=== PATIENT | female | born 1995 | race Caucasian/White ===

== ENCOUNTER → 2017-09-19 | Outpatient (CLI) | payer BC, OTHER, SELFPAY | PROVIDERS: Family Provider Family Medicine; Visit Provider Orthopaedic Surgery | DX: S62.339D Displaced fracture of neck of unspecified metacarpal bone, subsequent encounter for fracture with routine healing (principal) | CPT/HCPCS: 73130 ==

== ENCOUNTER 2017-12-18 22:16 | Emergency (ER) | payer BC, OTHER, SELFPAY ==
[2017-12-18 22:21] VITALS: BP 93/61; PULSE 90; RESP 14; TEMP 37.1; O2SAT 100; BMI 22.8
--- NOTE | 2017-12-18 22:33 | XR_ITS ---
XR hand RT min 3V HISTORY: Laceration, pain ITS.REASON: possible foreign body ORDERING PHYSICIAN: Mauricio Lemus MD PATIENT AGE: 22 years COMPARISON: None FINDINGS: No fracture or dislocation. No lytic or blastic change. There is normal mineralization.. The joint spaces are well-preserved. No significant degenerative/arthritic changes. No erosive changes evident.. No radio opaque foreign body IMPRESSION: Negative, no acute finding
--- NOTE | 2017-12-18 23:11 | HMH.EDWNDL ---
ED Disposition Clinical Impression: Laceration Disposition: Home, Self-Care Condition on Discharge: Good Instructions: DI for Laceration Repair Additional Instructions: suture out 10 days Referrals: Amrit Esparza [Primary Care Provider] - - Critical Care Critical Care Time: No Attestation: On 12/18/17, the high probability of a clinically significant, sudden or life threatening deterioration of the following system(s) required my full and direct attention, intervention and personal management. The time I documented below is in addition to time spent performing reported procedures but includes the following listed in this critical care notation. Medical Decision Making - Medical Records Medical records reviewed: Yes: I reviewed the patient's medical records. - Evan Inquiry Pt receiving controlled substance: No Vital Signs: 12/18/17 22:21 Temperature 98.7 F Temperature Source Oral Pulse Rate [Left Radial] 90 Respiratory Rate 14 Blood Pressure [Left Arm] 93/61 Blood Pressure Mean [Left Arm] 71 Blood Pressure Source [Left Arm] Automatic Cuff Blood Pressure Position [Left Arm] Sitting 02 Sat by Pulse Oximetry 100 Oxygen Delivery Method Room Air - Lab Data Lab results reviewed: Yes: I reviewed the patient's lab results. Orders (Tests/Meds): ORDERS Category Date Time Status Hand XR right minimum 3 views [XR hand RT min 3V] Stat Exams 12/18/17 22:33 Ordered - Radiology Data #1 Image(s): Hand Image Reviewed: Yes I reviewed the patient's radiology image Preliminary Findings: No Fracture Seen Wound/Laceration HPI - General Chief Complaint: Wound/Laceration Stated Complaint: ao [id number] Lac to r hand Time Seen by Provider: 12/18/17 23:11 Mode of Arrival: Ambulatory Source of Information: Patient, Relative, Medical Record Limitations: No Limitations Description of Symptoms (Recalled from ER Triage Doc. 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 - History of Present Illness HPI narrative: lac rt hand at wrist Onset (ago): hour(s) Extremity Location: Right: hand Place: home Patient tetanus UTD: Yes Context: accidental Associated symptoms: suspect foreign body present - Related Data Home Medications Medication Instructions Recorded Confirmed cyanocobalamin (vit B-12) ER 2,000 2,000 mcg PO QDAY 09/25/17 12/18/17 mcg tablet,extended release folic acid 1 mg tablet 1 mg PO QDAY 09/25/17 12/18/17 levothyroxine 75 mcg capsule 75 mcg PO DAILY 09/25/17 12/18/17 Allergies Allergy/AdvReac Type Severity Reaction Status Date / Time amoxicillin [AMOXICILLIN] Allergy Unknown Verified 12/18/17 22:33 [facility] History I have reviewed the patient's past medical history: Yes Medical History: Denies:: Cancer, Diabetes Mellitus Type 1, Diabetes Mellitus Type 2, MRSA Amputation: No Fractures: No - Social History Smoking Status: Current every day smoker Alcohol Intake: current Alcohol Intake Frequency:: a few times a month Substance Use Type: crack/cocaine Last Used Substance: unknown - Psychiatric History Expresses thoughts of harming self/others: None Suicide Plan Description: No Plan ROS Obtained: Yes All systems reviewed & no additional complaints - Constitutional Constitutional: Denies fever(s) - Eyes Eyes: Denies change in vision - ENT Ears, Nose, Mouth, and Throat: Denies sore throat - Cardiovascular Cardiovascular: Denies chest pain at rest - Respiratory Respiratory: No chest congestion - Gastrointestinal Gastrointestingal: Denies: abdominal pain - Musculoskeletal Musculoskeletal: Denies joint pain - Integumentary/Breasts Skin/Breast: Reports as per HPI (1 cm rt hand lac / neurovascular ok / tendon intact ), Denies rash - Neurologic Neurologic: Denies seizure-like activity Physical Exam - General General appearance: alert, in no apparent distress - Head Head exam: normocephalic
--- NOTE | 2017-12-18 23:14 | ED_ITS ---
ED Disposition Clinical Impression: Laceration Disposition: Home, Self-Care Condition on Discharge: Good Instructions: DI for Laceration Repair Additional Instructions: suture out 10 days Referrals: Amrit Esparza [Primary Care Provider] - - Critical Care Critical Care Time: No Attestation: On 12/18/17, the high probability of a clinically significant, sudden or life threatening deterioration of the following system(s) required my full and direct attention, intervention and personal management. The time I documented below is in addition to time spent performing reported procedures but includes the following listed in this critical care notation. Medical Decision Making - Medical Records Medical records reviewed: Yes: I reviewed the patient's medical records. - Evan Inquiry Pt receiving controlled substance: No Vital Signs: 12/18/17 22:21 Temperature 98.7 F Temperature Source Oral Pulse Rate [Left Radial] 90 Respiratory Rate 14 Blood Pressure [Left Arm] 93/61 Blood Pressure Mean [Left Arm] 71 Blood Pressure Source [Left Arm] Automatic Cuff Blood Pressure Position [Left Arm] Sitting 02 Sat by Pulse Oximetry 100 Oxygen Delivery Method Room Air - Lab Data Lab results reviewed: Yes: I reviewed the patient's lab results. Orders (Tests/Meds): ORDERS Category Date Time Status Hand XR right minimum 3 views [XR hand RT min 3V] Stat Exams 12/18/17 22:33 Ordered - Radiology Data #1 Image(s): Hand Image Reviewed: Yes I reviewed the patient's radiology image Preliminary Findings: No Fracture Seen Wound/Laceration HPI - General Chief Complaint: Wound/Laceration Stated Complaint: ao [id number] Lac to r hand Time Seen by Provider: 12/18/17 23:11 Mode of Arrival: Ambulatory Source of Information: Patient, Relative, Medical Record Limitations: No Limitations Description of Symptoms (Recalled from ER Triage Doc. 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 Illness HPI narrative: lac rt hand at wrist Onset (ago): hour(s) Extremity Location: Right: hand Place: home Patient tetanus UTD: Yes Context: accidental Associated symptoms: suspect foreign body present - Related Data Home Medications Medication Instructions Recorded Confirmed cyanocobalamin (vit B-12) ER 2,000 2,000 mcg PO QDAY 09/25/17 12/18/17 mcg tablet,extended release folic acid 1 mg tablet 1 mg PO QDAY 09/25/17 12/18/17 levothyroxine 75 mcg capsule 75 mcg PO DAILY 09/25/17 12/18/17 Allergies Allergy/AdvReac Type Severity Reaction Status Date / Time amoxicillin [AMOXICILLIN] Allergy Unknown Verified 12/18/17 22:[address] [facility] History I have reviewed the patient's past medical history: Yes Medical History: Denies:: Cancer, Diabetes Mellitus Type 1, Diabetes Mellitus Type 2, MRSA Amputation: No Fractures: No - Social History Smoking Status: Current every day smoker Alcohol Intake: current Alcohol Intake Frequency:: a few times a month Substance Use Type: crack/cocaine Last Used Substance: unknown - Psychiatric History Expresses thoughts of harming self/others: None Suicide Plan Description: No Plan ROS Obtained: Yes All systems reviewed & no additional complaints
[2017-12-18 23:25] VITALS: BP 119/68; PULSE 78; RESP 15; TEMP 36.9; O2SAT 100
== END 2017-12-18 23:27 | disposition home or self-care (01) ==
PROVIDERS: Emergency Provider Emergency Medicine; Family Provider Family Medicine; PCP Family Medicine
DX: S61.411A Laceration without foreign body of right hand, initial encounter (principal); W45.8XXA Other foreign body or object entering through skin, initial encounter; F17.210 Nicotine dependence, cigarettes, uncomplicated; Z88.1 Allergy status to other antibiotic agents
CPT/HCPCS: 12001; 73130; 99282

== ENCOUNTER → 2020-05-26 11:13 | Outpatient (CLI) | payer OTHER, SELFPAY ==
[2020-05-26 11:38] LABS: Eosinophils # 0.1 K/mm3 (0.0-0.4); Eosinophils % 1.2 % (0.1-12.0); Hematocrit 33.7 % (37.0-47.0); Hemoglobin 11.2 g/dL (12.2-16.2); Lymphocytes # 1.8 K/mm3 (0.7-4.5); Lymphocytes % 23.3 % (10-50); Mean Corpuscular HGB Conc 33.3 g/dL (31.8-35.4); Mean Corpuscular Hemoglobin 29.7 pg (27.0-31.2); Mean Corpuscular Volume 89.1 fl (81-99); Mean Platelet Volume 8.5 fl (7.4-10.4); Monocytes # 0.4 K/mm3 (0.1-1.0); Neutrophils # 5.5 K/mm3 (1.8-7.8); Neutrophils % 70.4 % (37.0-80.0); Platelet Count 226 K/mm3 (142-424); Red Blood Count 3.78 M/mm3 (4.20-5.40); Red Cell Distribution Width 15.7 % (11.5-17.5); White Blood Count 7.8 K/mm3 (4.8-10.8)
[2020-05-26 12:27] LABS: Alanine Aminotransferase 10 U/L (12-78); Albumin Level 3.6 g/dl (3.5-5.0); Albumin/Globulin Ratio 1.1 (1.1-1.8); Alkaline Phosphatase 63 U/L (38-126); Anion Gap 12.6 mEq/L (5-15); Aspartate Amino Transferase 21 U/L (14-36); Bilirubin,Total 0.5 mg/dl (0.2-1.3); Blood Urea Nitrogen 11 mg/dl (7-17); Calcium 8.9 mg/dl (8.4-10.2); Carbon Dioxide 26 mmol/L (22.0-30.0); Chloride 100 mmol/L (98-107); Estimated Glomerular Filt Rate 101 ml/min (>60); GFR (African American) 122 ML/MIN (>60); Globulin 3.3 g/dL (1.3-3.2); Glucose 81 mg/dl (74-100); Potassium 4.6 mmoL/L (3.5-5.1); Sodium 134 mmol/L (136-145); Total Protein,Serum 6.9 g/dl (6.3-8.2)
[2020-05-26 12:46] LABS: Free Thyroxine Index 2.3 ug/dL (5.93-13.13); T4 (Thyroxine) 10.6 ug/dl (5.53-11.0); Triiodothryronine (T3) Uptake 22 % (23.5-40.5)
[2020-05-26 13:32] LABS: Vitamin B12 214 pg/mL
[2020-05-26 13:53] LABS: Folate > 20.00 ng/mL
[2020-05-27 10:27] LABS: HIV Screen 4th Generation wRfx Non Reactive (Non Reactive); Hepatitis B Surface Antigen Negative (Negative); Hepatitis C Antibody <0.1 s/co ratio (0.0-0.9); Rubella Antibodies, IgG 2.62 index (Immune >0.99)
[2020-05-27 15:31] LABS: Rapid Plasma Reagin Ab Titer Non Reactive (NonRea<1:1)
[2020-05-27 18:39] LABS: Phencyclidine Screen,Urine Negative ng/ml (<25)
[2020-05-27 18:49] LABS: Amphetamine/Metha Screen,Urine Negative ng/ml (<1000)
[2020-05-27 18:50] LABS: Cannabinoid Screen,Urine Negative ng/ml (<50)
[2020-05-27 18:51] LABS: Barbiturates Screen,Urine Negative ng/ml (<200); Benzodiazepines Screen,Urine Negative ng/ml (<200)
[2020-05-27 18:52] LABS: Methadone Screen,Urine Negative ng/ml (<300); Opiate Screen,Urine Negative ng/ml (<300)
[2020-05-27 18:53] LABS: Cocaine Screen,Urine Negative ng/ml (<300)
== END ==
PROVIDERS: Visit Provider Obstetrics & Gynecology
DX: Z34.90 Encounter for supervision of normal pregnancy, unspecified, unspecified trimester (principal); D52.9 Folate deficiency anemia, unspecified; E05.00 Thyrotoxicosis with diffuse goiter without thyrotoxic crisis or storm
CPT/HCPCS: 36415; 80053; 80305; 82607; 82746; 84436; 84443; 84479; 85025; 86592; 86703; 86762; 86850; 86870; 87340; 87380; G0432

== ENCOUNTER → 2020-06-16 13:06 | Outpatient (CLI) | payer OTHER, SELFPAY ==
--- NOTE | 2020-06-16 13:06 | US_ITS ---
PROCEDURE: US OB /MATERNAL DETAIL CLINICAL INDICATION: US OB Complete COMPARISON: No exams were available for comparison FINDINGS: There is a single live fetus which is in cephalic presentation. heart and body motion noted. Cervix is closed and measures 4.6 cm transabdominal. Placenta is anterior in implantation and grade 1. Complete survey performed and was unremarkable on the submitted images as in PACS. No discrete anomalies identified on survey imaging by technologist. Active fetus. Three-vessel cord with satisfactory umbilical cord insertion. 4- chamber heart noted. Survey of brain & ventricles Unremarkable. Face and neck survey unremarkable. Diaphragm and chest views unremarkable. Abdomen: Both kidneys noted and unremarkable. Stomach noted and satisfactory. Spine: Survey of the spine satisfactory with no anomalies identified nor imaged. Both arms and legs noted. Amniotic Fluid: Adequate. Maternal adnexa: No significant findings. Measurements: Average ultrasound age 20weeks 4days. Gestational Age 20weeks 1day Estimated due date by ultrasound age 0110/30/2020. Estimated weight 359g BPD = 20weeks 6days OFD = 20weeks 6days HC = 20weeks 1day AC = 20weeks 3days FL = 20weeks 6days Growth Percentile= 67Percent% Heart Rate = 140bpm Cerebellum = 21weeks 2days Humerus = 20weeks 5days HC/AC is 1.15 CI is 0.79 FL/BPD is 0.7 FL/AC is 0.22 IMPRESSION: Live IUP at 20 weeks 4 days as described above. No obvious anomalies. Please see above for detailed description Dictated by: Rc Garcia MD 06/17/2020 12:33 Rc Garcia MD in [place] 06/17/2020 12:33
== END ==
PROVIDERS: PCP Family Medicine; Visit Provider Obstetrics & Gynecology
DX: Z36.0 Encounter for antenatal screening for chromosomal anomalies (principal)
CPT/HCPCS: 76811

== ENCOUNTER → 2020-07-26 16:28 | Outpatient (CLI) | payer OTHER, SELFPAY | PROVIDERS: Visit Provider Obstetrics & Gynecology | DX: N39.0 Urinary tract infection, site not specified (principal) | CPT/HCPCS: 87086; 87088; 87186 ==

== ENCOUNTER → 2020-07-29 08:09 | Outpatient (CLI) | payer OTHER, SELFPAY ==
[2020-07-29 09:40] LABS: Glucose,Fasting 88 mg/dl (74-100)
[2020-07-29 10:18] LABS: Glucose 1 Hour 105 mg/dL (74-100)
== END ==
PROVIDERS: Visit Provider Obstetrics & Gynecology
DX: Z34.90 Encounter for supervision of normal pregnancy, unspecified, unspecified trimester (principal)
CPT/HCPCS: 36415; 82951

== ENCOUNTER 2020-07-31 03:26 | Outpatient (CLI) | payer OTHER, SELFPAY ==
[2020-07-31 03:44] VITALS: BMI 27.1
[2020-07-31 04:15] LABS: Fetal Membrane Rupture (Rapid) Negative (Negative); Microscopic, Urine URINE MICROSCOPIC (MICROSCOPIC)
[2020-07-31 04:18] LABS: Appearance,Urine SL CLOUDY (Clear); Bilirubin,Urine Negative (Negative); Blood, Urine Negative (Negative); Color,Urine YELLOW (Yellow); Glucose,Urine (UA) Negative (Negative); Ketones,Urine Negative (Negative); Leukocyte Esterase,Urine TRACE (Negative); Nitrate,Urine Negative (Negative); PH,Urine 6.5 (5.0-8.5); Protein,Urine Negative (Negative); Specific Gravity, Urine 1.025 (1.005-1.030); Urobilinogen,Urine 0.2 EU/dl (0.2)
[2020-07-31 04:22] LABS: Amorphous Sediment,Urine 1+ /lpf; Squamous Epithelial Cell,Urine 20-50 #/hpf (0-5); WBC,Urine 20-50 #/hpf (0-3)
[2020-07-31 04:29] LABS: Barbiturates Screen,Urine Negative ng/ml (<200); Benzodiazepines Screen,Urine Negative ng/ml (<200)
[2020-07-31 04:30] LABS: Amphetamine/Metha Screen,Urine Negative ng/ml (<1000); Methadone Screen,Urine Negative ng/ml (<300)
[2020-07-31 04:31] LABS: Cannabinoid Screen,Urine Negative ng/ml (<50)
[2020-07-31 04:32] LABS: Cocaine Screen,Urine Negative ng/ml (<300); Opiate Screen,Urine Negative ng/ml (<300)
[2020-07-31 04:33] LABS: Phencyclidine Screen,Urine Negative ng/ml (<25)
[2020-07-31 04:44] LABS: Basophils % 0.1 % (0.1-2.0); Eosinophils # 0.1 K/mm3 (0.0-0.4); Eosinophils % 0.7 % (0.1-12.0); Hematocrit 33.2 % (37.0-47.0); Hemoglobin 10.4 g/dL (12.2-16.2); Lymphocytes # 1.3 K/mm3 (0.7-4.5); Lymphocytes % 13.9 % (10-50); Mean Corpuscular HGB Conc 31.2 g/dL (31.8-35.4); Mean Corpuscular Hemoglobin 27.8 pg (27.0-31.2); Mean Corpuscular Volume 89.1 fl (81-99); Mean Platelet Volume 8.3 fl (7.4-10.4); Monocytes # 0.6 K/mm3 (0.1-1.0); Monocytes % 6.7 % (1.7-9.3); Neutrophils # 7.5 K/mm3 (1.8-7.8); Neutrophils % 78.5 % (37.0-80.0); Platelet Count 225 K/mm3 (142-424); Red Blood Count 3.73 M/mm3 (4.20-5.40); Red Cell Distribution Width 14.8 % (11.5-17.5); White Blood Count 9.5 K/mm3 (4.8-10.8)
[2020-07-31 04:53] LABS: Anion Gap 11.7 mEq/L (5-15); Blood Urea Nitrogen 15 mg/dl (7-17); Calcium 8.6 mg/dl (8.4-10.2); Carbon Dioxide 21 mmol/L (22.0-30.0); Chloride 107 mmol/L (98-107); Creatinine Clearance Estimated 66 mL/min (50-200); Estimated Glomerular Filt Rate 39 ml/min (>60); GFR (African American) 47 ML/MIN (>60); Glucose 92 mg/dl (74-100); Potassium 3.7 mmoL/L (3.5-5.1); Sodium 136 mmol/L (136-145)
[2020-07-31 05:10] VITALS: BP 117/78; PULSE 95; RESP 24; TEMP 37.1; O2SAT 99; BMI 27.1
== END 2020-07-31 07:00 | disposition home or self-care (01) ==
LOC: OBOUT 03:28 → OB 03:29
PROVIDERS: PCP Family Medicine; Referring Provider Obstetrics & Gynecology; Visit Provider Nurse Practitioner Obstetrics & Gynecology
DX: O26.892 Other specified pregnancy related conditions, second trimester (principal); Z3A.26 26 weeks gestation of pregnancy; R10.9 Unspecified abdominal pain; M54.5 Low back pain
CPT/HCPCS: 59025; 80048; 80305; 81001; 84112; 85025; 87086; 96365; 96367; G0463; J0595

== ENCOUNTER → 2020-09-12 14:17 | Outpatient (CLI) | payer OTHER, SELFPAY ==
--- NOTE | 2020-09-12 14:21 | US_ITS ---
PROCEDURE: US OB FOLLOW UP CLINICAL INDICATION: US BPP, Growth KERRY- SGA Small for gestational age COMPARISON: US US OB /MATERNAL DETAIL from 06/16/2020 FINDINGS: There is a single live fetus which is in cephalic presentation. heart body and practice breathing motion identified. Placenta is anterior and grade 1. Biophysical profile is 8 of 8. Average ultrasound age is 32 weeks 6 days. BPD 33 weeks 3 days, OFD 33 weeks 2 days, HC 33 weeks 0 days, AC 32 weeks 1 day, FL 32 weeks 4 days. Estimated weight is 1976 g which is 32 percentile. KERRY=16cm. IMPRESSION: Live IUP at 32 weeks 6 days as described above with a biophysical profile 8 of 8. Estimated weight is 1976 g which is 32 percentile. No evidence intrauterine growth restriction KERRY=16cm. Dictated by: Rc Garcia MD 09/13/2020 05:31 Rc Garcia MD in [place] 09/13/2020 05:31
== END ==
PROVIDERS: PCP Family Medicine; Visit Provider Obstetrics & Gynecology
DX: O36.5990 Maternal care for other known or suspected poor fetal growth, unspecified trimester, not applicable or unspecified (principal)
CPT/HCPCS: 76816; 76819

== ENCOUNTER 2020-10-11 11:20 | Inpatient (IN) | payer OTHER, SELFPAY ==
[2020-10-11 11:24] VITALS: BP 116/68; PULSE 82; RESP 18; TEMP 36.5; O2SAT 98; BMI 31.0
[2020-10-11 12:56] LABS: Basophils % 0.1 % (0.1-2.0); Eosinophils # 0.1 K/mm3 (0.0-0.4); Eosinophils % 0.6 % (0.1-12.0); Hemoglobin 10.3 g/dL (12.2-16.2); Lymphocytes % 20.7 % (10-50); Mean Corpuscular HGB Conc 31.2 g/dL (31.8-35.4); Mean Corpuscular Hemoglobin 25.6 pg (27.0-31.2); Mean Corpuscular Volume 82.1 fl (81-99); Monocytes # 0.5 K/mm3 (0.1-1.0); Monocytes % 5.1 % (1.7-9.3); Neutrophils # 7.2 K/mm3 (1.8-7.8); Neutrophils % 73.4 % (37.0-80.0); Platelet Count 236 K/mm3 (142-424); Red Blood Count 4.01 M/mm3 (4.20-5.40); Red Cell Distribution Width 16.6 % (11.5-17.5); White Blood Count 9.8 K/mm3 (4.8-10.8)
[2020-10-11 13:22] LABS: Microscopic, Urine URINE MICROSCOPIC (MICROSCOPIC)
--- NOTE | 2020-10-11 13:24 | HMH.OBAPHP ---
OB - H&P: HPI Antepartum - History of Present Illness Chief complaint: contractions History of present illness: 24 yo presented to routine appointment @ 36 6/ with complaints of nausea and regular contractions On NST she was yvrose every 2-3 minutes and cervix 4cm dilated Sent to L&D for admission GBS negative [facility] History I have reviewed the patient's past medical history: Yes Medical History: Denies:: Cancer, Diabetes Mellitus Type 1, Diabetes Mellitus Type 2, MRSA, Seizures *Have you ever received a pneumonia vaccine?: No *Have you received a flu vaccine this season?: No Other Medical History: Denies: Blood Transfusion Reaction Anesthesia experience/problems:: none Other Surgeries: No: Amputation: No Fractures: No - *Social History Smoking Status: Former smoker Tobacco Type: cigarettes # Packs/Day (cigarettes): 1 Alcohol Intake: current Alcohol Intake Frequency:: holidays/special occasions only Substance Use Type: crack/cocaine *Occupational Status:: unemployed *Travel in the last 8 weeks: None Family Hx:: Diabetes, Heart Attack, Hypertension, Hyperlipidemia, Kidney Disease, Cancer, Thyroid Disorder, Asthma Para: 3 Review of Systems - Review of Systems Review of systems:: pertinent systems reviewed and negative unless documented below - *Respiratory Denies cough - *Gastrointestinal Reports nausea, Denies vomiting - *Genitourinary Comments: + contractions Meds Home Medications Medication Instructions Recorded Confirmed Type cyanocobalamin (vitamin B-12) 2,000 mcg PO QDAY 09/25/17 10/11/20 History 2,000 mcg tablet,extended release folic acid 1 mg tablet 1 mg PO QDAY 09/25/17 10/11/20 History levothyroxine 75 mcg capsule 75 mcg PO DAILY 09/25/17 10/11/20 History insulin syringe-needle U-100 1 mL 1 ml .ROUTE .MEDSUPPLY #10 each 05/26/20 10/11/20 History 28 gauge x 1/2 vitamin with calcium 1 tab PO DAILY tab 05/26/20 10/11/20 History no.72-iron 27 mg-folic acid 1 mg tablet Citalopram Hydrobromide 20 mg PO DAILY 07/31/20 10/11/20 History [Citalopram HBr] Allergies Allergy/AdvReac Type Severity Reaction Status Date / Time amoxicillin [AMOXICILLIN] Allergy Unknown Verified 10/11/20 10:11 OB - H&P: Exam - Physical Exam Vital signs: Temp Pulse Resp BP Pulse Ox 97.7 F 82 18 116/68 98 10/11/20 11:24 10/11/20 11:24 10/11/20 11:24 10/11/20 11:24 10/11/20 11:24 - Constitutional no acute distress - Routine HEENT Exam Head: Present: normocephalic, atraumatic Eye: Absent: conjunctival icterus ENT: Present: mucous membranes moist - Routine Neck Exam Present: supple - Routine Respiratory Exam Present: CTA bilaterally. Absent: respiratory distress - Routine Cardiovascular Exam Present: RRR - Routine Abdominal Exam Present: soft. Absent: tenderness, distended - Routine Exam Comments: cervix 4/75/0 - Routine Extremities Exam Absent: edema - Routine Skin Exam Present: rash - Routine Neurological Exam Present: alert, oriented X3 - Routine Psychiatric Exam Present: normal affect OB - Results - Labs Labs: Short CBC 10/11/20 Range/Units 12:15 WBC 9.8 (4.8-10.8) K/mm3 Hgb 10.3 L (12.2-16.2) g/dL Hct 33.0 L (37.0-47.0) % Plt Count 236 (142-424) K/mm3 Urine 10/11/20 Range/Units 11:55 Urine Color Yellow (Yellow) Urine Appearance Clear (Clear) Urine pH 6.5 (5.0-8.5) Ur Specific [place] 1.020 (1.005-1.030) Urine Protein Negative (Negative) Urine Glucose (UA) Negative (Negative) OB - A/P Antepartum (1) 36 weeks gestation of Status: Acute (2) Active labor Status: Acute (3) Anxiety and depression Status: Acute (4) Folate deficiency anemia Status: Acute (5) Short interval between pregnancies affecting , antepartum Status: Acute - Additional Plan Additional Inf
[2020-10-11 13:28] LABS: Appearance,Urine CLEAR (Clear); Bilirubin,Urine Negative (Negative); Blood, Urine TRACE-I (Negative); Color,Urine YELLOW (Yellow); Glucose,Urine (UA) Negative (Negative); Ketones,Urine Negative (Negative); Leukocyte Esterase,Urine TRACE (Negative); Nitrate,Urine Negative (Negative); PH,Urine 6.5 (5.0-8.5); Protein,Urine Negative (Negative)
--- NOTE | 2020-10-11 13:32 | HMH.ANESCL ---
[facility] Anesthesia Checklist - Patient Identification Patient Identification: Arm Band, Verbal (Name & ) - Structural Data Admitted From: Home Planned Operative Procedure/s: labor epidural Consent for Planned Operative Procedure(s) Verified: Yes Verified Documents: History and Physical - NPO Status Verified Time NPO: 00:00 - Chart Verification Results Verified: CBC, BMP - Additional verifications Patient : Yes Anesthesia Reactions: No Hx Blood Transfusions: No Blood Transfusion Reaction: No Cephalosporin Allergy: No Previous Colonoscopy: No - Cardiovascular Assessment Heart Sounds: S1 & S2 Pulse Strength: Baseline Pulse Rhythm: Regular Peripheral Edema: No - Airway Assessment C-Spine Mobility Assessed: Yes TMJ Mobility Assessed: Yes Dentition: Good Dentition - Neurological Assessment Level of Consciousness: Awake, Alert, Appropriate Hx Seizures: No Numbness or tingling in extremities: No - Anesthesia Plan Anesthesia Risk discussed: Yes Anesthesia Plan: Verified ASA Class: II Anesthesia Type: Epidural [facility] History I have reviewed the patient's past medical history: Yes Medical History: Denies:: Cancer, Diabetes Mellitus Type 1, Diabetes Mellitus Type 2, MRSA *Have you ever received a pneumonia vaccine?: No *Have you received a flu vaccine this season?: No Anesthesia experience/problems:: none Other Surgeries: No: Amputation: No Fractures: No - *Social History Smoking Status: Former smoker Tobacco Type: cigarettes # Packs/Day (cigarettes): 1 Alcohol Intake: current Alcohol Intake Frequency:: holidays/special occasions only Substance Use Type: crack/cocaine *Occupational Status:: unemployed *Travel in the last 8 weeks: None Family Hx:: Diabetes, Heart Attack, Hypertension, Hyperlipidemia, Kidney Disease, Cancer, Thyroid Disorder, Asthma Para: 3
[2020-10-11 13:44] LABS: Coronavirus 19 IgG Antibody Negative (Negative); Coronavirus 19 IgM Antibody Negative (Negative)
[2020-10-11 14:04] LABS: Amphetamine/Metha Screen,Urine Negative ng/ml (<1000)
[2020-10-11 14:05] LABS: Barbiturates Screen,Urine Negative ng/ml (<200)
[2020-10-11 14:06] LABS: Benzodiazepines Screen,Urine Negative ng/ml (<200); Cannabinoid Screen,Urine Negative ng/ml (<50)
[2020-10-11 14:07] LABS: Cocaine Screen,Urine Negative ng/ml (<300)
[2020-10-11 14:08] LABS: Methadone Screen,Urine Negative ng/ml (<300); Opiate Screen,Urine Negative ng/ml (<300)
[2020-10-11 14:09] LABS: Phencyclidine Screen,Urine Negative ng/ml (<25)
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
[2020-10-11 16:00] VITALS: BP 110/64; PULSE 56; RESP 18; TEMP 36.4; O2SAT 100
--- NOTE | 2020-10-11 17:27 | HMH.DN ---
- Delivery Note Delivery Date:: 10/11/20 Delivery Time:: 15:17 Anesthesia Type: Epidural Was labor medically induced?: No Infant delivered prior to 39 weeks?: Yes Justification for early elective delivery:: Active Labor Infant Gender: Male at 1 minute: 8 at 5 minutes: 9 Delivery Procedure:: Spontaneous precipitous delivery of liveborn male Delivery occurred immediately after physician was called, leaving nursing staff to attend the delivery No shoulder dystocia or nuchal cord, per nursing staff Placenta delivered by MD, intact Cord segment preserved, per protocol No vulvar, vaginal or cervical lacerations Mother and stable to recovery EBL 300cc Placental Delivery Description: Spontaneous
[2020-10-11 19:06] LABS: POC Glucose,Bedside 62 (70-110)
[2020-10-11 20:00] VITALS: BP 111/57; PULSE 64; RESP 17; TEMP 36.8; O2SAT 100
[2020-10-11 21:35] LABS: POC Glucose,Bedside 59 (70-110)
[2020-10-12 00:10] LABS: POC Glucose,Bedside 65 (70-110)
[2020-10-12 03:47] LABS: POC Glucose,Bedside 77 (70-110)
[2020-10-12 04:00] VITALS: BP 112/73; PULSE 73; RESP 18; TEMP 36.7; O2SAT 100
[2020-10-12 07:11] LABS: Hematocrit 30.2 % (37.0-47.0); Hemoglobin 9.3 g/dL (12.2-16.2)
[2020-10-12 08:00] VITALS: BP 115/60; PULSE 73; RESP 16; TEMP 36.7; O2SAT 97
[2020-10-12 12:00] VITALS: BP 106/68; PULSE 80; RESP 18; TEMP 36.7; O2SAT 98
--- NOTE | 2020-10-12 14:09 | P.PN_ITS ---
Internal Medicine - PN: Subj *Date: 10/12/20 *Time: 14:09 Interval history: PPD 1 vaginal delivery Tolerating regular diet Ambulating and voiding without difficulty Lochia small Asymptomatic with [id number] anemia Exam Vital signs and Labs for Last 24 Hours: Temp Pulse Resp BP Pulse Ox 98.0 F 80 18 106/68 L 98 10/12/20 12:00 10/12/20 12:00 10/12/20 12:00 10/12/20 12:00 10/12/20 12:00 Laboratory Results - last 24 hr 10/11/20 11:55: Urine Opiates Screen Negative, Urine Methadone Screen Negative, Ur Barbituates Screen Negative, Ur Phencyclidine Scrn Negative, Ur Amphetamines Screen Negative, U Benzodiazepines Scrn Negative, Urine Cocaine Screen Negative, U Marijuana (THC) Screen Negative 10/11/20 12:15: Blood Type O Positive, Antibody Screen Positive 10/11/20 12:15: Antibody Identification Anti-Fya 10/11/20 18:57: POC Glucose 62 L 10/11/20 21:28: POC Glucose 59 L 10/12/20 00:01: POC Glucose 65 L 10/12/20 03:38: POC Glucose 77 10/12/20 06:08: Hgb 9.3 L, Hct 30.2 L I & O for Last 24 hours: Intake & Output 10/10/20 10/11/20 10/12/20 10/13/20 11:59 11:59 11:59 11:59 Weight 198 lb Narrative: CONSTITUTIONAL: no acute distress HEENT: mucous membranes moist PULMONARY: breathing unlabored without audible wheezes CV: no tachycardia or visible JVD; normal LE peripheral pulses ABD: soft, NT/ND, no guarding : fundus firm at/below umbilicus SKIN: no visible rash or lesions EXT: 1+ edema LEs NEURO: alert/oriented, no altered mental status PSYCH: appropriate mood and demeanor without visible anxiety/depression Assessment and Plan (1) 36 weeks gestation of Status: Acute Category: Medical Code(s): Z3A.36 - 36 weeks gestation of (2) Active labor Status: Acute Category: Medical Code(s): O60.10X0 - labor with prete rm delivery, unspecified trimester, not applicable or unspecified (3) Anxiety and depression Status: Acute Category: Medical Code(s): F41.9 - Anxiety disorder, unspecified; F32.9 - Major depressive disorder, single episode, unspecified (4) Folate deficiency anemia Status: Acute Category: Medical Code(s): D52.9 - Folate deficiency anemia, unspecified (5) Short interval between pregnancies affecting , antepartum Status: Acute Category: Medical Code(s): O09.899 - Supervision of other high risk pregnancies, unspecified trimester - Assessment and plan all Dx Assessment and Plan for all problems:: Routine care Anticipate discharge home tomorrow Continue PNV with FeSO4
--- NOTE | 2020-10-12 14:15 | HMH.PHAINT ---
MEDICATION RECONCILIATION COMPLETED ON PATIENT USING EXTERNAL FILL HISTORY FROM PHARMACY. -KATIE LOZA, [place]
[2020-10-12 16:00] VITALS: BP 113/69; PULSE 80; RESP 18; TEMP 36.8; O2SAT 98
[2020-10-12 19:43] VITALS: BP 108/70; PULSE 78; RESP 18; TEMP 37; O2SAT 98
[2020-10-13 04:58] VITALS: BP 118/67; PULSE 85; RESP 18; TEMP 36.9
[2020-10-13 08:00] VITALS: BP 108/57; PULSE 70; RESP 18; TEMP 37.2; O2SAT 98
[2020-10-13 12:00] VITALS: BP 127/75; PULSE 72; RESP 18; TEMP 36.7; O2SAT 96
--- NOTE | 2020-10-13 14:18 | HMH.DCSUM ---
General - General Admission date:: 10/11/20 Discharge date: 10/13/20 Hospital Course Hospital Course: Admitted in active labor at 36 6/7 Uncomplicated, precipitous vaginal delivery course uneventful Discharged home on PPD #2 in stable condition Ambulating and voiding without difficulty Tolerating regular diet Rhogam Administration: Not Indicated Objective Vital signs: Temp Pulse Resp BP Pulse Ox 98.1 F 72 18 127/75 96 10/13/20 12:00 10/13/20 12:00 10/13/20 12:00 10/13/20 12:00 10/13/20 12:00 Narrative: CONSTITUTIONAL: no acute distress HEENT: mucous membranes moist PULMONARY: breathing unlabored without audible wheezes CV: no tachycardia or visible JVD; normal LE peripheral pulses ABD: soft, NT/ND, no guarding : fundus firm at/below umbilicus SKIN: no visible rash or lesions EXT: 1+ edema LEs NEURO: alert/oriented, no altered mental status PSYCH: appropriate mood and demeanor without visible anxiety/depression DS: Diagnosis - Discharge Diagnosis (1) 36 weeks gestation of Status: Acute (2) Active labor Status: Acute (3) Anxiety and depression Status: Acute (4) Folate deficiency anemia Status: Acute (5) Short interval between pregnancies affecting , antepartum Status: Acute Discharge Plan - Patient Discharge Instructions ACTIVITY: Continue current activity DIET: regular diet Additional Instructions: NOTHING IN VAGINA FOR 6 WEEKS. CONTINUE TO TAKE VITAMINS AND DRINK PLENTY OF WATER. KEEP FOLLOW UP APPOINTMENT. Patient Instructions: Depression, Hemorrhage, DI for Labor and Delivery, Vaginal , DI for Pre-eclampsia, [facility] Post Discharge Instructions, Preventing the Spread of Coronavirus Discharge Instructions - Follow up Plan Follow up with: Suni Yi MD [Staff Physician] - Disposition: Home, Self-[facility] Medications: Home Medications Medication Instructions Recorded Confirmed Type cyanocobalamin (vitamin B-12) 2,000 mcg PO DAILY 09/25/17 10/12/20 History 2,000 mcg tablet,extended release folic acid 1 mg tablet 1 mg PO DAILY 09/25/17 10/12/20 History vitamin with calcium 1 tab PO DAILY tab 05/26/20 10/11/20 History no.72-iron 27 mg-folic acid 1 mg tablet Citalopram Hydrobromide 20 mg PO DAILY 07/31/20 10/11/20 History [Citalopram HBr] Levothyroxine Sodium 88 mcg PO DAILY 10/12/20 10/12/20 History [Levothyroxine 88mcg (0.088mg) Tab] Prescriptions/Medication Reconciliation: New Ibuprofen [Motrin 400mg tablet] 800 mg PO Q6HP PRN tablet PRN Reason: Mild To Moderate Pain Acetaminophen [Acetaminophen 325mg tab] 650 mg PO Q4HP PRN tablet PRN Reason: Mild Pain Continued folic acid 1 mg tablet 1 mg PO DAILY cyanocobalamin (vitamin B-12) 2,000 mcg tablet,extended release 2,000 mcg PO DAILY vitamin with calcium no.72-iron 27 mg-folic acid 1 mg tablet 1 tab PO DAILY tab Citalopram Hydrobromide [Citalopram HBr] 20 mg PO DAILY Levothyroxine Sodium [Levothyroxine 88mcg (0.088mg) Tab] 88 mcg PO DAILY - Problem Reconciliation Problems Reviewed?: Yes
== END 2020-10-13 15:50 | disposition home or self-care (01) | DRG 807 ==
PROVIDERS: Admitting Provider Obstetrics & Gynecology; PCP Family Medicine; Visit Provider Obstetrics & Gynecology
DX: O60.14X0 Preterm labor third trimester with preterm delivery third trimester, not applicable or unspecified (principal); Z37.0 Single live birth; Z3A.36 36 weeks gestation of pregnancy; D52.9 Folate deficiency anemia, unspecified; F41.9 Anxiety disorder, unspecified; F32.9 Major depressive disorder, single episode, unspecified; O62.3 Precipitate labor
CPT/HCPCS: 59409; 36415; 59025; 80305; 81001; 82962; 85014; 85018; 85025; 86328; 86850; 86870; 94761; C1758; G0283; J2405

== ENCOUNTER → 2020-10-12 14:52 | Outpatient (CLI) | payer OTHER, SELFPAY | PROVIDERS: Visit Provider Obstetrics & Gynecology | DX: Z34.90 Encounter for supervision of normal pregnancy, unspecified, unspecified trimester (principal) | CPT/HCPCS: 86403 ==

== ENCOUNTER 2020-10-31 17:21 | Emergency (ER) | payer OTHER, SELFPAY ==
[2020-10-31 17:25] VITALS: BP 124/80; PULSE 86; RESP 18; TEMP 36.9; O2SAT 98; BMI 15.9; BMI 24.2
--- NOTE | 2020-10-31 17:42 | XR_ITS ---
PROCEDURE: XR HAND RT MIN 3V CLINICAL INDICATION: LAC Pain following injury COMPARISON: CR HANDL3 HAND-LT-3 VIEWS from 09/03/2017 DX HANDL3 HAND-LT-3 VIEWS from 09/12/2017 CR HANDL3 HAND-LT-3 VIEWS from 09/19/2017 CR [id number] XR hand RT min 3V from 12/18/2017 FINDINGS: No fracture or dislocation. No lytic or blastic change. There is normal mineralization. The joint spaces are well-preserved. No significant degenerative/arthritic changes. No erosive changes evident. Other findings:None. IMPRESSION: No acute findings. Dictated by: Rc Garcia MD 11/01/2020 06:07 Rc Garcia MD in [place] 11/01/2020 06:07
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
[2020-10-31 18:23] VITALS: BP 124/80; PULSE 86; RESP 18; TEMP 36.9; O2SAT 98
== END 2020-10-31 18:27 | disposition home or self-care (01) ==
LOC: ER 17:35 → UTC 17:35
PROVIDERS: Emergency Provider Nurse Practitioner; PCP Family Medicine
DX: S61.411A Laceration without foreign body of right hand, initial encounter (principal); Z23 Encounter for immunization; W26.0XXA Contact with knife, initial encounter; Y92.010 Kitchen of single-family (private) house as the place of occurrence of the external cause; Y99.8 Other external cause status; Z87.891 Personal history of nicotine dependence
CPT/HCPCS: 73130; 90471; 90715; 99202; G0463

== ENCOUNTER → 2020-11-01 10:58 | Outpatient (CLI) | payer OTHER, SELFPAY ==
[2020-11-01 11:47] LABS: Coronavirus 19 IgG Antibody Negative (Negative); Coronavirus 19 IgM Antibody Negative (Negative)
== END ==
PROVIDERS: Visit Provider Orthopaedic Surgery
DX: Z01.818 Encounter for other preprocedural examination (principal); Z20.822 Contact with and (suspected) exposure to COVID-19; S61.411A Laceration without foreign body of right hand, initial encounter; S56.129A Laceration of flexor muscle, fascia and tendon of unspecified finger at forearm level, initial encounter
CPT/HCPCS: 36415; 86328

== ENCOUNTER 2020-11-01 13:43 | Day surgery (SDC) | payer OTHER, SELFPAY ==
[2020-11-01] VITALS (11 sets, daily range): BP systolic 111–128; BP diastolic 66–94; PULSE 63–97; RESP 14–20; TEMP 36.5–43; O2SAT 93–98; BMI 25.8; BMI 29.7
[2020-11-01 14:06] LABS: Urine Pregnancy, HCG Qual. Negative (Negative)
[2020-11-01 14:16] LABS: Barbiturates Screen,Urine Negative ng/ml (<200); Benzodiazepines Screen,Urine Negative ng/ml (<200)
[2020-11-01 14:17] LABS: Amphetamine/Metha Screen,Urine Negative ng/ml (<1000)
[2020-11-01 14:18] LABS: Cannabinoid Screen,Urine Negative ng/ml (<50); Methadone Screen,Urine Negative ng/ml (<300)
[2020-11-01 14:19] LABS: Cocaine Screen,Urine Negative ng/ml (<300)
[2020-11-01 14:20] LABS: Opiate Screen,Urine Negative ng/ml (<300); Phencyclidine Screen,Urine Negative ng/ml (<25)
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
--- NOTE | 2020-11-01 16:11 | P.PN_ITS ---
[facility] Anesthesia Checklist - Patient Identification Patient Identification: Arm Band - Structural Data Admitted From: Home Planned Operative Procedure/s: I&D, Wound Exploration Right Hand Consent for Planned Operative Procedure(s) Verified: Yes Verified Documents: Surgical Consent, History and Physical - NPO Status Verified Time NPO: 00:00 - Additional verifications Anesthesia Reactions: No Hx Blood Transfusions: No Blood Transfusion Reaction: No - Airway Assessment C-Spine Mobility Assessed: Yes (mp2) TMJ Mobility Assessed: Yes Dentition: Good Dentition - Neurological Assessment Level of Consciousness: Awake, Alert - Anesthesia Plan Anesthesia Risk discussed: Yes Anesthesia Plan: Verified ASA Class: II Anesthesia Type: General [facility] History Medical History: Reports:: Anxiety, Depression Denies:: Cancer (HPC), Diabetes Mellitus Type 1, Diabetes Mellitus Type 2, Internal Pacemaker, MRSA, Seizures *Have you ever received a pneumonia vaccine?: No *Have you received a flu vaccine this season?: No Other Medical History: Reports: Thyroid Disease, Other. Denies: Blood Transfusion Reaction Anesthesia experience/problems:: nac Other Surgeries: Yes: Other. No: , Pacemaker Amputation: No Fractures: No - *Social History Last grade of school completed: Some college Smoking Status: Never smoker Tobacco Type: cigarettes # Packs/Day (cigarettes): 1 Alcohol Intake: current Alcohol Intake Frequency:: holidays/special occasions only Substance Use Type: crack/cocaine *Occupational Status:: unemployed Housing: house Household Members: family, children *Travel in the last 8 weeks: None - Psychiatric History Pschychiatric History:: Reports:: Anxiety, Depression Family Hx:: Diabetes, Hypertension, Thyroid Disorder
--- NOTE | 2020-11-01 18:20 | HMH.ANESI ---
[facility] Anesthesia Record Part I Intake, IV Amount: 1,200 Estimated blood loss (mL): 10 Urine output (mL): 0 Blood Pressure: 119/74 SaO2: 93 Pulse Rate: 76 Respiratory Rate: 16 Temperature: 98.4 F Patient is:: Drowsy, Stable Stable to PACU at:: 16:15
--- NOTE | 2020-11-01 18:34 | HMH.OPNOTE ---
Date of procedure: 11/01/20 Pre-op Diagnosis:: R hand laceration, suspected flexor tendon injury Post-op Diagnosis:: R hand laceration with transection of flexor tendon x2 to small finger Procedure performed:: irrigation and debridement R hand laceration with wound exploration and flexor tendon repair x2 to small finger Surgeon:: Nel Correa MD Nurse Emergency Room(s):: [place] Tim INSPECTOR PRECISION:: Erik Molina Anesthesia: GETA, local Estimated blood loss (mL): 10 Clinical Note:: 25-year-old [id number] female with a laceration over the palm of the right hand sustained around 36 hours ago. It was late at night and she was cutting a orange, when the knife broke, slipped and sliced her palm. It was late, and she had been drinking, so she applied pressure to the wound and went to bed. Due to pain and persistent bleeding the following day, she sought treatment at the [facility] at [facility]. Concern was expressed for potential tendon injury, so the wound was dressed and she was asked to present to my office first thing this morning n.p.o. Examination in my office revealed a high degree of suspicion for flexor tendon laceration, as well as a deep laceration over zone 3 of the palm. The patient was not able to actively flex any of the distal joints of the small digit. She denied numbness or tingling in the fingertip at that time. We received a phone call from her family who expressed concern for her wellbeing. They report a history of self-harm. She gave to a child 3 weeks ago and was started about 2 weeks prior to that on Celexa. She does have a history of self-harm but denies that the current injury was self-inflicted. She has no current suicidal or homicidal ideation. I discussed the need for wound exploration and flexor tendon repair with the patient, who was in agreement with the plan. I discussed the risks of surgery with her, including bleeding, infection, neurovascular damage, inability to repair the tendon necessitating possible later flexor tendon reconstruction, successful repair of the tendon but later rerupture or failure to regain range of motion or strength, risk of persistent postoperative pain and stiffness, and need for further surgical procedures on this hand. The patient vocalized understanding of these risks and informed consent was obtained for the procedure. Urine drug screen and urine hCG were negative preop, and Covid antibody was negative. Operative findings:: skin laceration in zone 3 over volar R hand, ulnarly over 4th/5th digits; transverse and 4cm wide FDS/FDP to small finger both transected, but transected in zone 2; this indicates the patient likely had her finger flexed at the time of injury, the skin was lacerated and this penetrated to and transected the tendons; when the finger was extended the area of tendon injury was actually in zone 2 Operative note:: The patient was identified in preoperative holding and the right hand signed by myself. Consent was reviewed and verified with the patient, all questions answered. Prior to proceeding with surgery, she was evaluated by our behavioral health team, who agreed that she was not expressing any current suicidal or homicidal ideation. They discussed continuing outpatient therapy with her, and will be contacting her for further treatment. They also recommended starting a mood stabilizer now, and provided me with recommendations for lamotrigine dosing. The patient was then taken to the operating room and transferred to the operating table, where 900 mg clindamycin was infused intravenously and general anesthesia induced. Once the patient was anesthetized, dressings were removed from the right hand and a nonsterile tourniquet applied to the upper right arm. The right hand was then thoroughly cleansed, followed by prepping and draping in the usual sterile fashion for hand surgery. Timeout was performed, identifying the correct patient, correct procedure, and correct
--- NOTE | 2020-11-02 08:06 | HMH.ANESII ---
[facility] Anesthesia Record Part II Discharge Time: 18:45 Destination: Surgical Day Care (OP Surgery) PACU nurse assessment reviewed?: Yes Patient Condition:: Good Anesthesia Complications:: None Swallowing reflex intact?: Yes Cyanosis?: No Blood Pressure: 123/76 Pulse Rate: 79 Temperature: 98.3 F Mental Status: Alert & Oriented Pain level:: 0 Nausea and/or vomitting:: None Intake, IV Amount: 0
[2020-11-02 08:07] VITALS: BP 123/76; PULSE 79; TEMP 36.8
== END 2020-11-01 20:06 | disposition home or self-care (01) ==
LOC: OR 13:44
PROVIDERS: PCP Family Medicine; Visit Provider Orthopaedic Surgery
PROC: (CPT 26356; principal; 2020-11-01 16:00)
DX: S66.126A Laceration of flexor muscle, fascia and tendon of right little finger at wrist and hand level, initial encounter (principal); S61.411A Laceration without foreign body of right hand, initial encounter; W26.0XXA Contact with knife, initial encounter; Y92.010 Kitchen of single-family (private) house as the place of occurrence of the external cause
CPT/HCPCS: 26356; 26357; 80305; 81025; 96374; J2405; Q4211

== ENCOUNTER 2020-12-12 11:27 | Emergency (ER) | payer OTHER, SELFPAY ==
[2020-12-12 11:40] VITALS: BP 120/75; PULSE 63; RESP 16; TEMP 36.8; O2SAT 100; BMI 30.8
[2020-12-12 12:05] VITALS: BP 120/75; PULSE 63; RESP 16; TEMP 36.8; O2SAT 100; BMI 30.7
--- NOTE | 2020-12-12 12:33 | HMH.EDUTC ---
[facility] [place] Clinical Impression: UTI (urinary tract infection) Qualifiers: Urinary tract infection type: site unspecified Hematuria presence: without hematuria Qualified Code(s): N39.0 - Urinary tract infection, site not specified Disposition: Home, Self-Care Condition on Discharge: Good Instructions: Urinary Tract Infection, DI for Urinary Tract Infection (UTI), Nitrofurantoin Additional Instructions: *Increase fluids. Water not Soda or Tea *Start antibiotic immediately and be sure to take as ordered for the FULL length of time although you should start to see improvement over the next 48 hours *Be SURE to follow up anytime for new or worsening symptoms with your family doctor. AND in 48 hours for urine culture results with your family doctor, if you do not have a doctor then you may call back to the [facility] for urine culture results and further treatment. We do recommend that you choose and establish care with a Primary Care Physician. AND follow up with them in 10-14 days to repeat UA to ensure infection is resolved and blood no longer present *Be sure to let your PCP know that we sent urine cultures from the [facility] so they can follow up to ensure that you area the on the correct antibiotic Call your doctor office and make appointment for 48 hours (2 days from today) to follow up and get the results of your urine culture and further treatment Prescriptions: Nitrofurantoin Monohyd/M-Cryst [Macrobid 100 mg Capsule] 100 mg PO BID 7 Days #14 cap Transmission Status: Received by [facility] Referrals: Amrit Esparza [Primary Care Provider] - As needed Time of Disposition: 13:42 Medical Decision Making - Evan Inquiry Pt receiving controlled substance: No Evan was queried for this patient: No Vital Signs: 12/12/20 11:40 12/12/20 12:05 12/12/20 13:38 Temperature 98.2 F 98.2 F 98.2 F Temperature Source Oral Oral Pulse Rate 63 Pulse Rate [Left Radial] 63 63 Respiratory Rate 16 16 16 Blood Pressure 120/75 Blood Pressure [Left Arm] 120/75 120/75 Blood Pressure Mean [Left Arm] 90 90 Blood Pressure Source [Left Arm] Automatic Cuff Automatic Cuff Blood Pressure Position [Left Arm] Sitting Sitting 02 Sat by Pulse Oximetry 100 100 Oxygen Delivery Method Room Air Room Air - Lab Data Lab results reviewed: Yes: I reviewed the patient's lab results. Lab Results 12/12/20 12:21: Urine Color Yellow, Urine Appearance Cloudy, Urine pH 7.0, Ur Specific [place] 1.025, Urine Protein 1+, Urine Glucose (UA) Negative, Urine Ketones Negative, Urine Blood Negative, Urine Nitrate Positive A, Urine Bilirubin Negative, Urine Urobilinogen 1, Ur Leukocyte Esterase Negative Orders (Tests/Meds): ORDERS Category Date Time Status Urine Culture Stat Micro 12/12/20 13:30 Received Medical Decision Narrative: Spoke with Dr Perera office and informed them of patient complaint advised to have patient call office for appointment tomorrow for further evaluation and testing Discussed with patient that we could send her back to ED for further evaluation and testing and patient declined and advised she would follow up with her PCP tomorrow [facility] [place] - General Stated complaint: Abdominal Pain Time Seen by Provider: 12/12/20 12:33 Mode of Arrival: Ambulatory Source of Information: Patient Limitations: No Limitations Description of Symptoms (Recalled from Triage Doc. by RN): Pt reports LUQ abd pain for approx 2 months, states pain is intermittent, has intermittent diarrhea and nausea. Pt reports pain is worse after eating. Pt reports pain began soon after having a baby in september - History of Present Illness Provider Complaint: Patient states that she has been having pain on and off in her left upper abdomen area for about 2mths and sometimes she will have diarrhea and sometimes normal stool States that pain is sometimes worse after eating States that also she gets frequent UTI and has been hving frequent urination an
[2020-12-12 13:38] VITALS: BP 120/75; PULSE 63; RESP 16; TEMP 36.8; O2SAT 100
[2020-12-12 13:40] LABS: Apearance,Urine Cloudy (Clear); Bilirubin,Urine Negative (Negative); Blood, Urine Negative (Negative); Color,Urine Yellow (Yellow); Glucose,Urine (UA) Negative (Negative); Ketones,Urine Negative (Negative); Protein,Urine 1+ (Negative); Specific Gravity, Urine 1.025 (1.005-1.030); UTC Leukocyte Esterase,Urine Negative (Negative); UTC Nitrate,Urine Positive (Negative); Urobilinogen,Urine 1 EU/dl (0.2)
== END 2020-12-12 13:53 | disposition home or self-care (01) ==
PROVIDERS: Emergency Provider Nurse Practitioner; PCP Family Medicine
DX: N39.0 Urinary tract infection, site not specified (principal); F41.8 Other specified anxiety disorders
CPT/HCPCS: 81003; 87086; 87088; 87186; 99202; G0463

== ENCOUNTER → 2021-05-02 15:44 | Outpatient (CLI) | payer OTHER, SELFPAY | PROVIDERS: Visit Provider Obstetrics & Gynecology | DX: Z34.90 Encounter for supervision of normal pregnancy, unspecified, unspecified trimester (principal) ==

== ENCOUNTER → 2021-05-02 15:46 | Outpatient (CLI) | payer OTHER, SELFPAY ==
[2021-05-02 16:13] LABS: Eosinophils # 0.1 K/mm3 (0.0-0.4); Hematocrit 37.3 % (37.0-47.0); Hemoglobin 11.4 g/dL (12.2-16.2); Lymphocytes # 1.2 K/mm3 (0.7-4.5); Lymphocytes % 17.2 % (10-50); Mean Corpuscular HGB Conc 30.5 g/dL (31.8-35.4); Mean Corpuscular Hemoglobin 25.5 pg (27.0-31.2); Mean Corpuscular Volume 83.4 fl (81-99); Mean Platelet Volume 8.4 fl (7.4-10.4); Monocytes # 0.4 K/mm3 (0.1-1.0); Monocytes % 5.1 % (1.7-9.3); Neutrophils # 5.3 K/mm3 (1.8-7.8); Neutrophils % 75.5 % (37.0-80.0); Platelet Count 272 K/mm3 (142-424); Red Blood Count 4.47 M/mm3 (4.20-5.40); Red Cell Distribution Width 15.3 % (11.5-17.5); White Blood Count 7.1 K/mm3 (4.8-10.8)
[2021-05-04 06:11] LABS: HIV Screen 4th Generation wRfx Non Reactive (Non Reactive)
[2021-05-04 10:37] LABS: Hepatitis B Surface Antigen Negative (Negative); Hepatitis C Antibody <0.1 s/co ratio (0.0-0.9); Rubella Antibodies, IgG 2.69 index (Immune >0.99)
[2021-05-04 13:17] LABS: Rapid Plasma Reagin Ab Titer Non Reactive (NonRea<1:1)
== END ==
PROVIDERS: Visit Provider Obstetrics & Gynecology
DX: Z34.90 Encounter for supervision of normal pregnancy, unspecified, unspecified trimester (principal)
CPT/HCPCS: 36415; 85025; 86592; 86703; 86762; 86850; 86870; 87340; 87380; G0432

== ENCOUNTER → 2021-05-16 14:04 | Outpatient (CLI) | payer OTHER, SELFPAY ==
--- NOTE | 2021-05-16 14:04 | US_ITS ---
PROCEDURE: US OB TRANSVAGINAL CLINICAL INDICATION: follow up on hemorrhage COMPARISON: US US OB FOLLOW UP from 09/12/2020 FINDINGS: An intrauterine gestational sac is present with a pole with a crown-rump length of 5.92cm correlating to gestational age of 12weeks 3days. heart tones are present with an FHR of 151bpm. Yolk sac is noted. The placenta is forming posteriorly and is low lying. No subchorionic bleed evident at this time. IMPRESSION: Live IUP at 12 weeks 3 days. No obvious subchorionic bleed. Estimated due date by Ultrasound is 11/25/2021 Dictated by: Rc Garcia MD 05/16/2021 17:53 Rc Garcia MD in OV 05/16/2021 17:53
== END ==
PROVIDERS: PCP Family Medicine; Visit Provider Obstetrics & Gynecology
DX: Z34.90 Encounter for supervision of normal pregnancy, unspecified, unspecified trimester (principal)
CPT/HCPCS: 76817

== ENCOUNTER 2021-05-29 16:11 | Outpatient (CLI) | payer OTHER, SELFPAY ==
[2021-05-29 16:20] VITALS: BP 121/80; PULSE 87; RESP 18; TEMP 36.3; O2SAT 100
[2021-05-29 16:50] VITALS: BP 112/80; PULSE 84; RESP 18; O2SAT 99
[2021-05-29 17:36] VITALS: BP 116/79; PULSE 83; RESP 18; O2SAT 99
== END 2021-05-29 17:36 | disposition home or self-care (01) ==
LOC: INF 16:12
PROVIDERS: PCP Family Medicine; Visit Provider Obstetrics & Gynecology
DX: Z34.90 Encounter for supervision of normal pregnancy, unspecified, unspecified trimester (principal); Z3A.14 14 weeks gestation of pregnancy; E86.0 Dehydration
CPT/HCPCS: 96360

== ENCOUNTER → 2021-07-11 14:17 | Outpatient (CLI) | payer OTHER, SELFPAY ==
--- NOTE | 2021-07-11 14:18 | US_ITS ---
PROCEDURE: US OB >= 14 WEEKS FETUS CLINICAL INDICATION: OB complete COMPARISON: US US OB TRANSVAGINAL from 05/16/2021 FINDINGS: There is a single live fetus which in variable position. heart and body motion noted. The cervix is closed measuring 3 cm. The placenta is posterior and grade 1. No previa or abruption. The Complete survey performed and was unremarkable on the submitted images as in PACS. No discrete anomalies identified on survey imaging by technologist. Active fetus. Three-vessel cord with satisfactory umbilical cord insertion. 4- chamber heart noted. Survey of brain & ventricles Unremarkable. Face and neck survey unremarkable. Diaphragm and chest views unremarkable. Abdomen: Both kidneys noted and unremarkable. Stomach noted and satisfactory. Spine: Survey of the spine satisfactory with no anomalies identified nor imaged. Both arms and legs noted. Amniotic Fluid: Adequate. Maternal adnexa: No significant findings. Measurements: Average ultrasound age 20weeks. Gestational Age 20weeks Estimated due date by ultrasound age 0311/28/2021. Estimated weight 325g BPD = 20weeks OFD = 20weeks 2days HC = 19weeks 3days AC = 20weeks 1day FL = 20weeks 1day Growth Percentile= 14% Heart Rate = 142bpm Cerebellum = 21weeks 2days Humerus = 20weeks 2days HC/AC is 1.14 CI is 0.77 FL/BPD is 0.71 FL/AC is 0.22 IMPRESSION: Live IUP with an average ultrasound age of 20 weeks. No obvious anomalies. Please see above for detail. Dictated by: Rc Garcia MD 07/12/2021 07:43 Rc Garcia MD in OV 07/12/2021 07:43
== END ==
PROVIDERS: PCP Family Medicine; Visit Provider Obstetrics & Gynecology
DX: Z34.90 Encounter for supervision of normal pregnancy, unspecified, unspecified trimester (principal)
CPT/HCPCS: 76805

== ENCOUNTER 2021-07-29 21:02 | Emergency (ER) | payer OTHER, SELFPAY ==
[2021-07-29 21:03] VITALS: BP 108/63; PULSE 103; RESP 17; TEMP 36.8; O2SAT 100; BMI 26.1
[2021-07-29 21:31] VITALS: BMI 26.1
--- NOTE | 2021-07-29 21:38 | PC.NURSE ---
pt aware of the need for diarrhea sample, given instructions.
--- NOTE | 2021-07-29 21:42 | HMH.EDGENADL ---
ED Disposition Clinical Impression: Gastroenteritis, Dehydration Qualifiers: Weeks of gestation: 23 weeks Qualified Code(s): Z3A.23 - 23 weeks gestation of Disposition: Home, Self-Care Condition on Discharge: Good Instructions: DI for Diarrhea and Traveler's Diarrhea -- Adult, DI for Nausea -- Adult, DI for Dehydration -- Adult Additional Instructions: Drink plenty of fluids. Continue Zofran as needed for nausea. Follow-up with primary care provider or manager child if symptoms persist. Referrals: Amrit Esparza [Primary Care Provider] - - Critical Care Critical Care Time: No Attestation: On 07/29/21, the high probability of a clinically significant, sudden or life threatening deterioration of the following system(s) required my full and direct attention, intervention and personal management. The time I documented below is in addition to time spent performing reported procedures but includes the following listed in this critical care notation. Medical Decision Making - Evan Inquiry Pt receiving controlled substance: No Vital Signs: 07/29/21 21:03 Temperature 98.2 F Temperature Source Oral Pulse Rate [Right] 103 H Respiratory Rate 17 Blood Pressure [Right Arm] 108/63 L Blood Pressure Mean [Right Arm] 78 Blood Pressure Source [Right Arm] Automatic Cuff 02 Sat by Pulse Oximetry 100 Oxygen Delivery Method Room Air - Lab Data Lab Results 07/29/21 21:15: WBC 7.7, RBC 4.07 L, Hgb 10.8 L, Hct 34.5 L, MCV 84.9, MCH 26.5 L, MCHC 31.2 L, RDW 18.2 H, Plt Count 282, MPV 8.3, Neut % (Auto) 64.8, Lymph % (Auto) 27.1, [place] % (Auto) 7.0, Eos % (Auto) 0.9, Baso % (Auto) 0.2, Neut # (Auto) 5.0, Lymph # (Auto) 2.1, [place] # (Auto) 0.5, Eos # (Auto) 0.1, Baso # (Auto) 0.0 07/29/21 21:15: Sodium 134 L, Potassium 3.7, Chloride 106, Carbon Dioxide 21 L, Anion Gap 10.7, BUN 7, Creatinine 0.60, Estimated Creat Clear 153, Estimated GFR 120, Est GFR ( Amer) 145, Glucose 102 H, Calcium 9.1, Total Bilirubin 0.5, AST 22, ALT 18, Alkaline Phosphatase 67, Total Protein 6.7, Albumin 3.2 L, Globulin 3.5 H, Albumin/Globulin Ratio 0.9 L, Lipase 100 07/29/21 21:25: Urine Color Yellow, Urine Appearance Cloudy, Urine pH 6.0, Ur Specific [place] >= 1.030, Urine Protein 2+, Urine Glucose (UA) Negative, Urine Ketones Trace, Urine Blood Trace-i, Urine Nitrate Negative, Urine Bilirubin Negative, Urine Urobilinogen 4.0, Ur Leukocyte Esterase 1+ A, Urine WBC 3-5, Ur Squamous Epith Cells 50-100 07/29/21 21:38: SARS-CoV-2 (PCR) Not detected, Influenza A Untype (PCR) Not detected, Influenza Type B (PCR) Not detected Result diagrams: 07/29/21 21:15 07/29/21 21:15 Orders (Tests/Meds): ED MEDICATIONS Generic Name Dose Route Start Last Admin Trade Name Freq PRN Reason Stop Dose Admin Sodium Chloride 1,000 mls @ 999 mls/hr 07/29/21 21:45 07/29/21 21:34 Sod Chlor 0.9% 1000ml Bag IV 07/29/21 22:45 999 mls/hr .Q1H1M CHRIS Administration ORDERS Category Date Time Status Diarrhea 23 Panel, PCR Stat Lab 07/29/21 21:38 Ordered Urine Culture Stat Micro 07/29/21 21:25 Received - Reevaluation(s) Time: 22:49 Reevaluation #1: Talking on phone. No diarrhea in the emergency department. Mild dehydration as evidenced by high urine specific gravity. After 1 L of fluids will be discharged for outpatient follow-up. General Adult HPI - General Chief complaint: Nausea/Vomiting/Diarrhea Stated complaint: V&D Time Seen by Provider: 07/29/21 21:25 Mode of Arrival: Family Vehicle Limitations: No Limitations Description of Symptoms (Recalled from ER Triage Doc. by RN): Pt c/o headache, diarrhea, and n/v for 2 days. Pt is 23wk , OBGYN Dr. Yi. FHT 134. Pt denies any back pain, vaginal pain, or vaginal bleeding. Pt reports active movement of fetus. Pt denies fever, chills, taste variation. - History of Present Illness HPI narrative: Patient states that 2 days ago she developed a headache, followed by vo
[2021-07-29 21:43] LABS: Coronavirus 19, PCR Not Detected (NotDetected); Influenza A, PCR Not Detected (NotDetected); Influenza B, PCR Not Detected (NotDetected)
[2021-07-29 21:50] LABS: Microscopic, Urine URINE MICROSCOPIC (MICROSCOPIC)
[2021-07-29 21:54] LABS: Appearance,Urine CLOUDY (Clear); Bilirubin,Urine Negative (Negative); Blood, Urine TRACE-I (Negative); Color,Urine YELLOW (Yellow); Glucose,Urine (UA) Negative (Negative); Ketones,Urine TRACE (Negative); Leukocyte Esterase,Urine 1+ (Negative); Nitrate,Urine Negative (Negative); Protein,Urine 2+ (Negative); Specific Gravity, Urine >= 1.030 (1.005-1.030)
[2021-07-29 21:55] LABS: Squamous Epithelial Cell,Urine 50-100 #/hpf (0-5)
[2021-07-29 21:56] LABS: Alanine Aminotransferase 18 U/L (12-78); Albumin Level 3.2 g/dl (3.5-5.0); Albumin/Globulin Ratio 0.9 (1.1-1.8); Alkaline Phosphatase 67 U/L (38-126); Anion Gap 10.7 mEq/L (5-15); Aspartate Amino Transferase 22 U/L (14-36); Bilirubin,Total 0.5 mg/dl (0.2-1.3); Blood Urea Nitrogen 7 mg/dl (7-17); Calcium 9.1 mg/dl (8.4-10.2); Carbon Dioxide 21 mmol/L (22.0-30.0); Chloride 106 mmol/L (98-107); Creatinine Clearance Estimated 153 mL/min (50-200); Estimated Glomerular Filt Rate 120 ml/min (>60); GFR (African American) 145 ML/MIN (>60); Globulin 3.5 g/dL (1.3-3.2); Glucose 102 mg/dl (74-100); Lipase 100 U/L (23-300); Potassium 3.7 mmoL/L (3.5-5.1); Sodium 134 mmol/L (136-145); Total Protein,Serum 6.7 g/dl (6.3-8.2)
[2021-07-29 21:57] LABS: Basophils % 0.2 % (0.1-2.0); Eosinophils # 0.1 K/mm3 (0.0-0.4); Eosinophils % 0.9 % (0.1-12.0); Hematocrit 34.5 % (37.0-47.0); Hemoglobin 10.8 g/dL (12.2-16.2); Lymphocytes # 2.1 K/mm3 (0.7-4.5); Lymphocytes % 27.1 % (10-50); Mean Corpuscular HGB Conc 31.2 g/dL (31.8-35.4); Mean Corpuscular Hemoglobin 26.5 pg (27.0-31.2); Mean Corpuscular Volume 84.9 fl (81-99); Mean Platelet Volume 8.3 fl (7.4-10.4); Monocytes # 0.5 K/mm3 (0.1-1.0); Neutrophils % 64.8 % (37.0-80.0); Platelet Count 282 K/mm3 (142-424); Red Blood Count 4.07 M/mm3 (4.20-5.40); Red Cell Distribution Width 18.2 % (11.5-17.5); White Blood Count 7.7 K/mm3 (4.8-10.8)
[2021-07-29 22:54] VITALS: BP 108/63; PULSE 107; RESP 16; TEMP 37.2; O2SAT 99
--- NOTE | 2021-07-29 22:54 | PC.NURSE ---
Pt still unable to give diarrhea sample. aware.
== END 2021-07-29 23:02 | disposition home or self-care (01) ==
PROVIDERS: Emergency Provider Emergency Medicine; PCP Family Medicine
DX: K52.9 Noninfective gastroenteritis and colitis, unspecified (principal); E86.0 Dehydration; Z3A.23 23 weeks gestation of pregnancy; F41.8 Other specified anxiety disorders; Z20.822 Contact with and (suspected) exposure to COVID-19
CPT/HCPCS: 80053; 81001; 83690; 85025; 87086; 96365; 99282; C9803; U0003; U0005

== ENCOUNTER → 2021-08-22 11:53 | Outpatient (CLI) | payer OTHER, SELFPAY ==
[2021-08-22 12:23] LABS: Basophils % 0.2 % (0.1-2.0); Eosinophils # 0.1 K/mm3 (0.0-0.4); Eosinophils % 0.4 % (0.1-12.0); Hematocrit 34.2 % (37.0-47.0); Hemoglobin 10.7 g/dL (12.2-16.2); Lymphocytes # 2.2 K/mm3 (0.7-4.5); Lymphocytes % 18.8 % (10-50); Mean Corpuscular HGB Conc 31.3 g/dL (31.8-35.4); Mean Corpuscular Volume 83.1 fl (81-99); Mean Platelet Volume 9.3 fl (7.4-10.4); Monocytes # 0.6 K/mm3 (0.1-1.0); Monocytes % 4.8 % (1.7-9.3); Neutrophils # 8.7 K/mm3 (1.8-7.8); Neutrophils % 75.7 % (37.0-80.0); Platelet Count 339 K/mm3 (142-424); Red Blood Count 4.12 M/mm3 (4.20-5.40); Red Cell Distribution Width 17.1 % (11.5-17.5); White Blood Count 11.5 K/mm3 (4.8-10.8)
[2021-08-22 12:24] LABS: Glucose,Fasting 89 mg/dl (74-100)
[2021-08-22 13:12] LABS: Triiodothryronine (T3) Uptake 19 % (23.5-40.5)
[2021-08-22 13:14] LABS: T4 (Thyroxine) 10.6 ug/dl (5.53-11.0)
[2021-08-22 13:27] LABS: Thyroid Stimulating Hormone 5.67 uIU/mL (0.465-4.68)
[2021-08-22 14:26] LABS: Glucose 1 Hour 140 mg/dL (74-100)
== END ==
PROVIDERS: Visit Provider Obstetrics & Gynecology
DX: Z34.90 Encounter for supervision of normal pregnancy, unspecified, unspecified trimester (principal)
CPT/HCPCS: 36415; 82951; 84436; 84443; 84479; 85025

== ENCOUNTER → 2021-09-19 12:49 | Outpatient (CLI) | payer OTHER, SELFPAY | PROVIDERS: PCP Family Medicine; Visit Provider Nurse Practitioner | DX: Z20.822 Contact with and (suspected) exposure to COVID-19 (principal) | CPT/HCPCS: C9803; U0003; U0005 ==

== ENCOUNTER → 2021-10-02 11:49 | Outpatient (CLI) | payer OTHER, SELFPAY | PROVIDERS: PCP Family Medicine; Visit Provider Nurse Practitioner | DX: U07.1 COVID-19 (principal) | CPT/HCPCS: C9803; U0003; U0005 ==

== ENCOUNTER 2021-10-14 19:39 | Outpatient (CLI) | payer OTHER, SELFPAY ==
[2021-10-14 20:00] VITALS: BP 110/75; PULSE 94; RESP 18; TEMP 36.6; O2SAT 98; BMI 30.9
[2021-10-14 20:21] VITALS: BMI 31.0
[2021-10-14 20:41] LABS: Microscopic, Urine URINE MICROSCOPIC (MICROSCOPIC)
[2021-10-14 20:54] LABS: Appearance,Urine CLEAR (Clear); Bilirubin,Urine Negative (Negative); Blood, Urine Negative (Negative); Color,Urine YELLOW (Yellow); Glucose,Urine (UA) Negative (Negative); Ketones,Urine Negative (Negative); Leukocyte Esterase,Urine TRACE (Negative); Nitrate,Urine Negative (Negative); Protein,Urine Negative (Negative)
[2021-10-14 21:08] LABS: Barbiturates Screen,Urine Negative ng/ml (<200); Benzodiazepines Screen,Urine Negative ng/ml (<200)
[2021-10-14 21:09] LABS: Amphetamine/Metha Screen,Urine Negative ng/ml (<1000); Cannabinoid Screen,Urine Negative ng/ml (<50)
[2021-10-14 21:10] LABS: Cocaine Screen,Urine Negative ng/ml (<300)
[2021-10-14 21:11] LABS: Methadone Screen,Urine Negative ng/ml (<300); Opiate Screen,Urine Negative ng/ml (<300)
[2021-10-14 21:12] LABS: Phencyclidine Screen,Urine Negative ng/ml (<25)
[2021-10-14 22:28] LABS: Amorphous Sediment,Urine Trace /lpf; Calcium Oxalate Crystals,Urine 1+ /lpf
== END 2021-10-14 22:20 | disposition home or self-care (01) ==
LOC: OBOUT 19:41 → OB 19:43
PROVIDERS: PCP Family Medicine; Visit Provider Nurse Practitioner Obstetrics & Gynecology
DX: O26.893 Other specified pregnancy related conditions, third trimester (principal); Z3A.34 34 weeks gestation of pregnancy
CPT/HCPCS: 59025; 80305; 81001; 96365; 96372; G0463

== ENCOUNTER 2021-10-15 10:27 | Outpatient (CLI) | payer OTHER, SELFPAY ==
[2021-10-15 10:35] VITALS: BP 137/77; PULSE 110; RESP 20; TEMP 36.7; O2SAT 95
[2021-10-15 10:40] VITALS: BP 137/77; PULSE 110; RESP 20; TEMP 36.7; O2SAT 95; BMI 31.0
[2021-10-15 10:49] VITALS: BMI 31.0
== END 2021-10-15 10:56 | disposition home or self-care (01) ==
LOC: OBOUT 10:29 → OB 10:31
PROVIDERS: PCP Family Medicine; Visit Provider Obstetrics & Gynecology
DX: O60.03 Preterm labor without delivery, third trimester (principal); Z3A.34 34 weeks gestation of pregnancy
CPT/HCPCS: 96372; G0463

== ENCOUNTER 2021-10-24 11:25 | Outpatient (CLI) | payer OTHER, SELFPAY ==
[2021-10-24 11:34] VITALS: BP 131/82; PULSE 106; RESP 16; TEMP 36.5; O2SAT 100; BMI 32.4
[2021-10-24 11:42] VITALS: BP 131/82; PULSE 106; RESP 16; TEMP 36.5; O2SAT 100
== END 2021-10-24 14:00 | disposition home or self-care (01) ==
LOC: OBOUT 11:26 → OB 14:05
PROVIDERS: PCP Family Medicine; Visit Provider Obstetrics & Gynecology
DX: O60.03 Preterm labor without delivery, third trimester (principal); Z3A.35 35 weeks gestation of pregnancy
CPT/HCPCS: 59025; 96360; 96365; 96372; G0378; G0463

== ENCOUNTER → 2021-10-24 17:32 | Outpatient (CLI) | payer OTHER, SELFPAY | PROVIDERS: Visit Provider Obstetrics & Gynecology | DX: Z34.90 Encounter for supervision of normal pregnancy, unspecified, unspecified trimester (principal) | CPT/HCPCS: 86403 ==

== ENCOUNTER → 2021-11-06 13:54 | Outpatient (CLI) | payer OTHER, SELFPAY | PROVIDERS: PCP Family Medicine; Visit Provider Obstetrics & Gynecology | DX: Z34.90 Encounter for supervision of normal pregnancy, unspecified, unspecified trimester (principal) | CPT/HCPCS: C9803; U0003; U0005 ==

== ENCOUNTER 2021-11-07 05:16 | Inpatient (IN) | payer OTHER, SELFPAY ==
[2021-11-07 05:24] VITALS: BMI 32.4
[2021-11-07 05:37] VITALS: BP 115/76; PULSE 94; RESP 18; TEMP 36.6; O2SAT 99; BMI 32.4
[2021-11-07 06:34] LABS: Coronavirus 19, PCR Not Detected (NotDetected); Influenza A, PCR Not Detected (NotDetected); Influenza B, PCR Not Detected (NotDetected)
[2021-11-07 06:34] LABS: Microscopic, Urine URINE MICROSCOPIC (MICROSCOPIC)
[2021-11-07 06:50] LABS: Basophils # 0.1 K/mm3 (0-0.2); Basophils % 0.8 % (0.1-2.0); Eosinophils # 0.1 K/mm3 (0.0-0.4); Eosinophils % 0.9 % (0.1-12.0); Hematocrit 38.9 % (37.0-47.0); Hemoglobin 12.4 g/dL (12.2-16.2); Lymphocytes # 2.2 K/mm3 (0.7-4.5); Lymphocytes % 25.4 % (10-50); Mean Corpuscular HGB Conc 31.7 g/dL (31.8-35.4); Mean Corpuscular Hemoglobin 29.5 pg (27.0-31.2); Mean Corpuscular Volume 92.9 fl (81-99); Mean Platelet Volume 9.1 fl (7.4-10.4); Monocytes # 0.7 K/mm3 (0.1-1.0); Monocytes % 7.6 % (1.7-9.3); Neutrophils # 5.6 K/mm3 (1.8-7.8); Neutrophils % 65.3 % (37.0-80.0); Platelet Count 227 K/mm3 (142-424); Red Blood Count 4.19 M/mm3 (4.20-5.40); Red Cell Distribution Width 20.9 % (11.5-17.5); White Blood Count 8.5 K/mm3 (4.8-10.8)
[2021-11-07 07:03] LABS: Amphetamine/Metha Screen,Urine Negative ng/ml (<1000)
[2021-11-07 07:04] LABS: Barbiturates Screen,Urine Negative ng/ml (<200); Benzodiazepines Screen,Urine Negative ng/ml (<200)
[2021-11-07 07:05] LABS: Cannabinoid Screen,Urine Negative ng/ml (<50)
[2021-11-07 07:06] LABS: Cocaine Screen,Urine Negative ng/ml (<300); Methadone Screen,Urine Negative ng/ml (<300)
[2021-11-07 07:07] LABS: Appearance,Urine SL CLOUDY (Clear); Bilirubin,Urine Negative (Negative); Blood, Urine Negative (Negative); Color,Urine YELLOW (Yellow); Glucose,Urine (UA) Negative (Negative); Ketones,Urine Negative (Negative); Leukocyte Esterase,Urine Negative (Negative); Nitrate,Urine Negative (Negative); Opiate Screen,Urine Negative ng/ml (<300); Protein,Urine Negative (Negative); Urobilinogen,Urine 0.2 EU/dl (0.2)
[2021-11-07 07:08] LABS: Phencyclidine Screen,Urine Negative ng/ml (<25)
[2021-11-07 07:25] LABS: Amorphous Sediment,Urine Trace /lpf; RBC,Urine Occasional #/hpf (0-3); WBC,Urine Occasional #/hpf (0-3)
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
--- NOTE | 2021-11-07 12:11 | HMH.DN ---
- Delivery Note Delivery Date:: 11/07/21 Delivery Time:: 11:04 Anesthesia Type: Epidural Was labor medically induced?: Yes Induction method: per pitocin protocol Gestational age (weeks): 37 delivered prior to 39 weeks?: Yes Justification for early elective delivery:: Distress (elevated MCA dopplers) Gender: Female at 1 minute: 9 at 5 minutes: 9 Delivery Procedure:: Spontaneous vaginal delivery of vigorous female infant over intact perineum. Delivery uncomplicated No nuchal cord No shoulder dystocia with delivery placed in HALINA immediately after delivery, with standard nursing assessment performed Apgars: 9 & 9 Placenta spontaneously expressed and examined; noted to be complete/intact. Vulva, vagina, and cervix inspected; no lacerations present EBL: 300 cc All sponge/needle/instrument counts correct at conclusion of procedure Placental Delivery Description: Spontaneous
--- NOTE | 2021-11-07 15:01 | XR_ITS ---
FINAL REPORT CLINICAL HISTORY: severe chest pain after delivery FINDINGS: SINGLE VIEW CHEST The heart is normal in size. The mediastinum is unremarkable. The lungs are clear. There is no pneumothorax. IMPRESSION: No acute cardiopulmonary process. Reviewed, Interpreted and Dictated by Monty Castro III, MD Transcribed by Lashell Ballard Authenticated by Monty Castro III, MD on 11/07/2021 03:44:10 PM [facility]
[2021-11-07 20:04] VITALS: BP 134/87; PULSE 77; RESP 18; TEMP 36.6; O2SAT 100
[2021-11-08 06:35] LABS: Hematocrit 37.1 % (37.0-47.0); Hemoglobin 11.5 g/dL (12.2-16.2)
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
== END 2021-11-08 11:00 | disposition home or self-care (01) | DRG 807 ==
PROVIDERS: Admitting Provider Nurse Practitioner Obstetrics & Gynecology; PCP Family Medicine; Visit Provider Obstetrics & Gynecology
DX: O99.284 Endocrine, nutritional and metabolic diseases complicating childbirth (principal); Z37.0 Single live birth; E03.9 Hypothyroidism, unspecified; O99.824 Streptococcus B carrier state complicating childbirth; O77.8 Labor and delivery complicated by other evidence of fetal stress; Z86.16 Personal history of COVID-19; Z3A.37 37 weeks gestation of pregnancy; O36.1930 Maternal care for other isoimmunization, third trimester, not applicable or unspecified
CPT/HCPCS: 59409; 36415; 59025; 71045; 80305; 81001; 85014; 85018; 85025; 86850; 86870; 94761; C9803; G0283; J1050; U0003; U0005

== ENCOUNTER → 2021-12-24 20:39 | Outpatient (CLI) | payer OTHER, SELFPAY ==
[2021-12-24 21:36] LABS: Basophils % 0.5 % (0.1-2.0); Eosinophils % 0.3 % (0.1-12.0); Hematocrit 42.4 % (37.0-47.0); Hemoglobin 14.7 g/dL (12.2-16.2); Lymphocytes % 61.5 % (10-50); Mean Corpuscular HGB Conc 34.7 g/dL (31.8-35.4); Mean Corpuscular Hemoglobin 32.4 pg (27.0-31.2); Mean Corpuscular Volume 93.4 fl (81-99); Mean Platelet Volume 8.1 fl (7.4-10.4); Monocytes # 0.2 K/mm3 (0.1-1.0); Neutrophils # 1.6 K/mm3 (1.8-7.8); Neutrophils % 32.7 % (37.0-80.0); Platelet Count 201 K/mm3 (142-424); Red Blood Count 4.54 M/mm3 (4.20-5.40); Red Cell Distribution Width 14.9 % (11.5-17.5); White Blood Count 4.8 K/mm3 (4.8-10.8)
[2021-12-24 21:39] LABS: MANUAL DIFFERENTIAL MANUAL DIFFERENTIAL (MANUAL DIFF)
[2021-12-24 21:44] LABS: Chloride 109 mmol/L (98-107); Potassium 4.1 mmoL/L (3.5-5.1); Sodium 139 mmol/L (136-145)
[2021-12-24 21:46] LABS: Alanine Aminotransferase 29 U/L (12-78); Aspartate Amino Transferase 42 U/L (14-36); Bilirubin,Total 0.4 mg/dl (0.2-1.3); Blood Urea Nitrogen 13 mg/dl (7-17); Estimated Glomerular Filt Rate 53 ml/min (>60); GFR (African American) 65 ML/MIN (>60)
[2021-12-24 21:47] LABS: Albumin Level 3.9 g/dl (3.5-5.0); Albumin/Globulin Ratio 1.3 (1.1-1.8); Alkaline Phosphatase 91 U/L (38-126); Anion Gap 10.1 mEq/L (5-15); Calcium 8.1 mg/dl (8.4-10.2); Carbon Dioxide 24 mmol/L (22.0-30.0); Globulin 3.1 g/dL (1.3-3.2); Glucose 65 mg/dl (74-100)
[2021-12-24 22:43] LABS: Lymphocytes % 70 % (10-50); Monocytes % 1 % (2-9); Neutrophils % 29 % (42-76); Platelet Estimate Normal; RBC Morphology Normal; Total Cells Counted 100
[2021-12-25 00:28] LABS: Amphetamine/Metha Screen,Urine Negative ng/ml (<1000)
[2021-12-25 00:29] LABS: Barbiturates Screen,Urine Negative ng/ml (<200)
[2021-12-25 00:30] LABS: Benzodiazepines Screen,Urine Negative ng/ml (<200); Cannabinoid Screen,Urine Negative ng/ml (<50)
[2021-12-25 00:31] LABS: Cocaine Screen,Urine Negative ng/ml (<300); Methadone Screen,Urine Negative ng/ml (<300)
[2021-12-25 00:32] LABS: Opiate Screen,Urine Negative ng/ml (<300)
[2021-12-25 00:33] LABS: Phencyclidine Screen,Urine Negative ng/ml (<25)
[2021-12-25 09:17] LABS: HCG Qualitative, Serum Negative (Negative)
== END ==
PROVIDERS: PCP Family Medicine; Visit Provider Obstetrics & Gynecology
DX: Z01.812 Encounter for preprocedural laboratory examination (principal); Z11.52 Encounter for screening for COVID-19; Z64.0 Problems related to unwanted pregnancy
CPT/HCPCS: 36415; 80053; 80305; 84702; 84703; 85007; 85025; C9803; U0003; U0005

== ENCOUNTER 2021-12-26 06:30 | Day surgery (SDC) | payer OTHER, SELFPAY ==
[2021-12-25 08:38] VITALS: BMI 29.9
[2021-12-26] VITALS (13 sets, daily range): BP systolic 106–143; BP diastolic 61–94; PULSE 54–77; RESP 14–18; TEMP 36.1–36.4; O2SAT 95–97
--- NOTE | 2021-12-26 08:35 | P.PN_ITS ---
[facility] Anesthesia Checklist - Patient Identification Patient Identification: Arm Band - Structural Data Admitted From: Home Planned Operative Procedure/s: Laparoscopic BTL Consent for Planned Operative Procedure(s) Verified: Yes Verified Documents: Surgical Consent, History and Physical - NPO Status Verified Time NPO: 00:00 - Additional verifications Anesthesia Reactions: No Hx Blood Transfusions: No Blood Transfusion Reaction: No - Airway Assessment C-Spine Mobility Assessed: Yes (mp2) TMJ Mobility Assessed: Yes Dentition: Good Dentition - Neurological Assessment Level of Consciousness: Awake, Alert - Anesthesia Plan Anesthesia Risk discussed: Yes Anesthesia Plan: Verified ASA Class: II Anesthesia Type: General [facility] History I have reviewed the patient's past medical history: Yes Medical History: Reports:: Anxiety, Depression Denies:: Cancer, Diabetes Mellitus Type 1, Diabetes Mellitus Type 2, Internal Pacemaker, MRSA, Seizures *Have you ever received a pneumonia vaccine?: No *Have you received a flu vaccine this season?: No Other Medical History: Reports: Anemia, Thyroid Disease, Other. Denies: Blood Transfusion Reaction Anesthesia experience/problems:: nac Other Surgeries: Yes: Cholecystectomy, Other. No: , Pacemaker Amputation: No Fractures: No - *Social History Last grade of school completed: Some college Smoking Status: Never smoker Tobacco Type: cigarettes # Packs/Day (cigarettes): 1 Alcohol Intake: current Alcohol Intake Frequency:: a few times a month Substance Use Type: former substance user *Occupational Status:: unemployed Housing: house Household Members: family, children *Travel in the last 8 weeks: None - Psychiatric History Pschychiatric History:: Reports:: Anxiety, Depression Family Hx:: No significant family history
--- NOTE | 2021-12-26 09:06 | HMH.ANESI ---
[facility] Anesthesia Record Part I Intake, IV Amount: 1,000 Estimated blood loss (mL): 10 Urine output (mL): 0 Blood Pressure: 141/92 SaO2: 97 Pulse Rate: 56 Respiratory Rate: 16 Temperature: 97.5 F Patient is:: Drowsy, Stable Stable to PACU at:: 09:00
--- NOTE | 2021-12-26 09:53 | SUR.PHASEI ---
0949- detailed report called to malika hung in post op. 0951- pt in stable condition with malika hung in post op at this time.
--- NOTE | 2021-12-26 11:51 | P.PN_ITS ---
[facility] Anesthesia Record Part II Discharge Time: 09:50 Destination: Surgical Day Care (OP Surgery) PACU nurse assessment reviewed?: Yes Patient Condition:: Good Anesthesia Complications:: None Swallowing reflex intact?: Yes Cyanosis?: No Blood Pressure: 132/81 Pulse Rate: 68 Temperature: 97.4 F Mental Status: Alert & Oriented Pain level:: 5 Nausea and/or vomitting:: None Intake, IV Amount: 0
--- NOTE | 2021-12-26 12:09 | P.OP_ITS ---
Date of procedure: 12/26/21 Pre-op Diagnosis:: 1. Undesired fertility Post-op Diagnosis:: same Procedure performed:: Laparoscopic tubal ligation Surgeon:: Suni Yi MD FLEX O WRITER OPERATOR:: Erik Molina Anesthesia: ANTHONY Estimated blood loss (mL): 5 Operative findings:: grossly normal pelvic anatomy Operative note:: The patient was taken to the operating room and general anesthesia was administered. She was prepped/draped in lithotomy position. A uterine manipulator was placed without difficulty. Gloves were changed and attention was turned to the abdomen. A 5mm skin incision was made in the umbilical fold and the Verees needle was inserted through the peritoneum and into the abdominal cavity in standard fashion. The abdomen was insufflated with CO2 gas. A 5mm non-bladed trocar was inserted directly into the abdominal cavity and appropriate placement was confirmed with the laparoscope. No intra-abdominal injuries occurred during entry into the abdominal cavity, as confirmed visually with the laparoscope. The patient was placed in trendelenburg and a 8mm skin incision was made 2cm above the pubic symphysis. A 8mm non-bladed trocar was inserted under direct visualization, without complication. The uterus was elevated out of the pelvis in order to better visualize the anatomy. A survey of the pelvis and abdomen revealed the findings noted above. The uterus was angled towards the patient right and the left fallopian tube was grasped and a Filshie clip was placed over the tube. The clip was noted to completely occlude the tube. The uterus was then angled towards the patient left, and the right fallopian tube was grasped and a Filshie clip was placed over the tube. The clip was noted to completely occlude the tube. The uterine manipulator was removed. The abdomen was then evacuated of gas and all trocars removed. The skin incisions were closed with Dermabond. The patient tolerated the procedure well. Sponge/lap/needle/instrument counts were correct at conclusion of procedure. She was taken out of lithotomy position and awakened from anesthesia, and was taken to the recovery room in stable condition. Condition: stable Disposition: PACU Specimens:: none Complications:: none
== END 2021-12-26 10:39 | disposition home or self-care (01) ==
LOC: OR 06:32
PROVIDERS: PCP Family Medicine; Visit Provider Obstetrics & Gynecology
PROC: 0UL74ZZ Occlusion of Bilateral Fallopian Tubes, Percutaneous Endoscopic Approach (ICD-10-PCS; CPT 58670; principal; 2021-12-26 08:00)
DX: Z30.2 Encounter for sterilization (principal); F41.9 Anxiety disorder, unspecified; F32.A Depression, unspecified; D64.9 Anemia, unspecified; E03.9 Hypothyroidism, unspecified; Z86.16 Personal history of COVID-19; Z88.1 Allergy status to other antibiotic agents; Z79.899 Other long term (current) drug therapy
CPT/HCPCS: 58670; 96374; J2405; J2710

== ENCOUNTER → 2022-10-02 16:47 | Outpatient (CLI) | payer OTHER, SELFPAY ==
[2022-10-04 08:19] LABS: HSV 2 IgG, Type Spec 5.48 index (0.00-0.90)
[2022-10-04 14:32] LABS: Rapid Plasma Reagin Ab Titer Non Reactive (NonRea<1:1)
[2022-10-05 06:31] LABS: Neisseria gonorrhoeae, NAA Negative (Negative)
[2022-10-10 23:09] LABS: HIV Screen 4th Generation wRfx NON REACTIVE
[2022-10-10 23:10] LABS: Hepatitis C Antibody <0.1
== END ==
PROVIDERS: PCP Family Medicine; Visit Provider Obstetrics & Gynecology
DX: Z11.3 Encounter for screening for infections with a predominantly sexual mode of transmission (principal); Z11.4 Encounter for screening for human immunodeficiency virus [HIV]
CPT/HCPCS: 36415; 86593; 86695; 86703; 86790; 87380; 87491; 87591; G0432

== ENCOUNTER 2023-12-23 16:24 | Emergency (ER) | payer OTHER, SELFPAY ==
[2023-12-23 17:15] VITALS: BP 94/64; PULSE 81; RESP 16; TEMP 36.7; O2SAT 100; BMI 27.6
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
[2023-12-23 17:51] VITALS: BP 107/71; PULSE 81; RESP 16; TEMP 36.7; O2SAT 100
== END 2023-12-23 18:06 | disposition home or self-care (01) ==
PROVIDERS: Emergency Provider Nurse Practitioner; PCP Family Medicine
DX: U07.1 COVID-19 (principal); R19.7 Diarrhea, unspecified; R11.0 Nausea; R68.83 Chills (without fever); Z56.0 Unemployment, unspecified; Z91.419 Personal history of unspecified adult abuse
CPT/HCPCS: 87635; 99203; 99212; G0463

== ENCOUNTER 2024-03-23 02:05 | Emergency (ER) | payer OTHER, SELFPAY ==
--- NOTE | 2024-03-23 02:01 | ECG_ITS ---
APPROVED REPORT Exam: Resting ECG HR:119 bpm ECG Measurements Heart Rate 119 AXES NM 154 P 75 QRSd 97 QRS 66 QT 298 T 64 QTc 369 Conclusion SINUS TACHYCARDIA ABNORMAL RHYTHM ECG UNCONFIRMED REPORT Electronically signed by : HERVE ADLER, 03/23/2024 06:49:27
[2024-03-23 02:06] VITALS: BP 112/74; PULSE 124; RESP 22; TEMP 36.9; O2SAT 99; BMI 20.5
[2024-03-23 02:08] VITALS: PULSE 121; RESP 28; O2SAT 98
[2024-03-23 02:09] VITALS: PULSE 124
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
[2024-03-23 02:30] VITALS: BP 108/66; PULSE 104; RESP 20; O2SAT 98
--- NOTE | 2024-03-23 02:39 | XR_ITS ---
PROCEDURE INFORMATION: Exam: XR Chest Exam date and time: 03/23/2024 2:41 AM Age: 28 years old Clinical indication: Pain; Chest pressure; Additional info: Chest pain TECHNIQUE: Imaging protocol: Radiologic exam of the chest. Views: 1 view. COMPARISON: CR XR CHEST PORTABLE 11/07/2021 3:15 PM FINDINGS: Lungs: Unremarkable. No consolidation. Pleural spaces: Unremarkable. No pleural effusion. No pneumothorax. Heart/Mediastinum: Unremarkable. No cardiomegaly. Bones/joints: Unremarkable. IMPRESSION: No acute findings.
[2024-03-23 03:05] LABS: Basophils # 0.1 K/mm3 (0-0.2); Basophils % 0.6 % (0.1-2.0); Eosinophils % 0.3 % (0.1-12.0); Hematocrit 46.7 % (37.0-47.0); Hemoglobin 15.2 g/dL (12.2-16.2); Lymphocytes # 3.8 K/mm3 (0.7-4.5); Lymphocytes % 34.3 % (10-50); Mean Corpuscular HGB Conc 32.6 g/dL (31.8-35.4); Mean Corpuscular Hemoglobin 32.2 pg (27.0-31.2); Mean Corpuscular Volume 98.9 fl (81-99); Mean Platelet Volume 7.9 fl (7.4-10.4); Monocytes # 0.5 K/mm3 (0.1-1.0); Monocytes % 4.1 % (1.7-9.3); Neutrophils # 6.7 K/mm3 (1.8-7.8); Neutrophils % 60.7 % (37.0-80.0); Platelet Count 285 K/mm3 (142-424); Red Blood Count 4.72 M/mm3 (4.20-5.40); Red Cell Distribution Width 13.9 % (11.5-17.5); White Blood Count 11.1 K/mm3 (4.8-10.8)
[2024-03-23 03:08] LABS: Chloride 106 mmol/L (98-107)
[2024-03-23 03:09] LABS: Potassium 3.6 mmoL/L (3.5-5.1); Sodium 144 mmol/L (136-145)
[2024-03-23 03:11] LABS: Alanine Aminotransferase 19 U/L (12-78); Aspartate Amino Transferase 37 U/L (14-36); Blood Urea Nitrogen 20 mg/dl (7-17); Creatinine Clearance Estimated 54 mL/min (50-200); Estimated Glomerular Filt Rate 48 ml/min (>60); GFR (African American) 58 ML/MIN (>60)
[2024-03-23 03:12] LABS: Albumin Level 4.5 g/dl (3.5-5.0); Albumin/Globulin Ratio 1.2 (1.1-1.8); Alkaline Phosphatase 85 U/L (38-126); Anion Gap 17.6 mEq/L (5-15); Bilirubin,Total 0.4 mg/dl (0.2-1.3); Calcium 9.4 mg/dl (8.4-10.2); Carbon Dioxide 24 mmol/L (22.0-30.0); Globulin 3.8 g/dL (1.3-3.2); Glucose 97 mg/dl (74-100); Total Protein,Serum 8.3 g/dl (6.3-8.2)
[2024-03-23 03:28] LABS: D-Dimer 0.42 ug/mL (0.0-0.5)
[2024-03-23] MEDS: BELLADONNA ALKALOIDS 60 ML ML PO (03:49)
[2024-03-23] MEDS: ACETAMINOPHEN 500MG TAB 1000 MG PO (03:50)
[2024-03-23 03:53] LABS: HCG Qualitative, Serum Negative (Negative)
[2024-03-23 04:06] LABS: Troponin I < 0.01 ng/ml (0.00-0.034)
[2024-03-23 04:54] VITALS: BP 110/78; PULSE 101; RESP 20; TEMP 36.9; O2SAT 98
== END 2024-03-23 05:02 | disposition home or self-care (01) ==
PROVIDERS: Emergency Provider Emergency Medicine
DX: R07.9 Chest pain, unspecified (principal); R00.0 Tachycardia, unspecified; F19.90 Other psychoactive substance use, unspecified, uncomplicated; F17.210 Nicotine dependence, cigarettes, uncomplicated
CPT/HCPCS: 71045; 80053; 84484; 84703; 85025; 85378; 93005; 99284